=== PATIENT | male | born 1975 | race Caucasian/White ===

== ENCOUNTER 2019-11-08 02:14 | Observation (INO) | payer MEDICARE ==
[2019-11-08 07:03] LABS: Glucose,Whole Blood 178 mg/dL (75-99)
[2019-11-08] MEDS: HEPARIN SODIUM,PORCINE 5,000 UNIT/ML 1 ML VIAL SQ SCH ×2 (09:16→21:19)
[2019-11-08] MEDS: FAMOTIDINE 20 MG/2 ML VIAL IV SCH ×2 (09:16→21:18)
[2019-11-08] MEDS: AMPICILLIN-SULBACTAM 3 GM in SODIUM CHLORIDE 0.9% 100 ML IVPB SCH ×2 (09:16→16:27)
[2019-11-08] MEDS: SODIUM CHLORIDE 0.9% 1,000 ML IV SCH ×2 (09:16→21:19)
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
[2019-11-08] MEDS ORDERED: HEPARIN SODIUM,PORCINE 5,000 UNIT/ML 1 ML VIAL SQ SCH (09:45)
[2019-11-08 10:25] LABS: Basophils % (A) 0 %; Eosinophils # (A) 0.1 k/uL (0-0.7); Eosinophils % (A) 1 %; HCT 35.4 % (39.0-53.0); HGB 11.8 gm/dL (13.0-17.5); Lymphocytes # (A) 0.4 k/uL (1.0-4.8); Lymphocytes % (A) 3 %; MCH 29.4 pg (25.0-35.0); MCHC 33.2 g/dL (31.0-37.0); MCV 88.7 fL (80.0-100.0); Mean Platelet Volume 6.8; Monocytes # (A) 0.3 k/uL (0-1.0); Monocytes % (A) 2 %; Neutrophils # (A) 12.9 k/uL (1.3-7.7); Neutrophils % (A) 94 %; Platelet Count 216 k/uL (150-450); RBC 3.99 m/uL (4.30-5.90); RDW 13.7 % (11.5-15.5); WBC 13.8 k/uL (3.8-10.6)
[2019-11-08 10:30] LABS: ALT 25 U/L (4-49); AST 22 U/L (17-59); African American GFR (CKD) >90 (>60 ml/min/1.73 sqM); Albumin 3.6 g/dL (3.5-5.0); Alkaline Phosphatase 56 U/L (38-126); Anion Gap 5 mmol/L; Bilirubin, Delta 0.1 mg/dL (0.0-0.2); Bilirubin,Unconjugated 0.5 mg/dL (0.0-1.1); Blood Urea Nitrogen 22 mg/dL (9-20); Calcium 8.6 mg/dL (8.4-10.2); Carbon Dioxide 33 mmol/L (22-30); Chloride 98 mmol/L (98-107); Glucose 191 mg/dL (74-99); Magnesium 1.7 mg/dL (1.6-2.3); Non-African American GFR(CKD) >90 (>60 ml/min/1.73 sqM); Potassium 3.9 mmol/L (3.5-5.1); Sodium 136 mmol/L (137-145); Total Bilirubin 0.6 mg/dL (0.2-1.3); Total Protein 6.1 g/dL (6.3-8.2)
[2019-11-08 10:32] LABS: Partial Thromboplastin Time 24.1 sec (22.0-30.0)
--- NOTE | 2019-11-08 10:45 | US ---
EXAMINATION TYPE: US venous doppler duplex LE LT DATE OF EXAM: 11/08/2019 10:29 AM COMPARISON: NONE CLINICAL HISTORY: edema . 367lb pt with red left leg and cellulitis, no h/o dvt SIDE PERFORMED: Left TECHNIQUE: The lower extremity deep venous system is examined utilizing real time linear array sonog rk with graded compression, doppler sonography and color-flow sonography. VESSELS IMAGED: External Iliac Vein (EIV) Common Femoral Vein Deep Femoral Vein Greater Saphenous Vein * Femoral Vein Popliteal Vein Small Saphenous Vein * Proximal Calf Veins (* superficial vessels) Left Leg: Negative for DVT IMPRESSION: No evidence for DVT at this time.
[2019-11-08] MEDS: amLODIPine 10 MG TAB PO SCH (11:10)
[2019-11-08 11:47] LABS: Glucose,Whole Blood 193 mg/dL (75-99)
[2019-11-08] MEDS: INSULIN ASPART (NovoLOG) 100 UNIT/ML VIAL SQ SCH ×3 (12:14→21:19)
[2019-11-08] MEDS: FUROSEMIDE 80 MG TAB PO SCH (16:27)
[2019-11-08 16:51] LABS: Glucose,Whole Blood 204 mg/dL (75-99)
[2019-11-08] MEDS: metFORMIN 500 MG TAB PO SCH (17:30)
[2019-11-08 20:03] LABS: Glucose,Whole Blood 209 mg/dL (75-99)
[2019-11-08] MEDS ORDERED: FAMOTIDINE 20 MG/2 ML VIAL IV SCH (21:00)
[2019-11-08] MEDS: GABAPENTIN 400 MG CAP PO SCH (21:19)
[2019-11-08] MEDS: INSULIN DETEMIR (LEVEMIR) 100 UNIT/ML SYR SQ SCH (21:19)
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
[2019-11-09] MEDS: AMPICILLIN-SULBACTAM 3 GM in SODIUM CHLORIDE 0.9% 100 ML IVPB SCH ×3 (00:03→16:18)
[2019-11-09] MEDS: LEVOTHYROXINE 88 MCG TAB PO SCH (05:39)
[2019-11-09 06:56] LABS: Glucose,Whole Blood 173 mg/dL (75-99)
[2019-11-09 07:37] LABS: Basophils % (A) 0 %; Eosinophils % (A) 1 %; HCT 35.9 % (39.0-53.0); HGB 11.9 gm/dL (13.0-17.5); Lymphocytes # (A) 0.9 k/uL (1.0-4.8); Lymphocytes % (A) 13 %; MCH 29.8 pg (25.0-35.0); MCHC 33.2 g/dL (31.0-37.0); MCV 89.9 fL (80.0-100.0); Mean Platelet Volume 7.1; Monocytes # (A) 0.3 k/uL (0-1.0); Monocytes % (A) 4 %; Neutrophils # (A) 5.6 k/uL (1.3-7.7); Neutrophils % (A) 81 %; Platelet Count 194 k/uL (150-450); RBC 3.99 m/uL (4.30-5.90); RDW 13.6 % (11.5-15.5)
[2019-11-09 07:51] LABS: ALT 27 U/L (4-49); AST 26 U/L (17-59); African American GFR (CKD) >90 (>60 ml/min/1.73 sqM); Albumin 3.4 g/dL (3.5-5.0); Alkaline Phosphatase 53 U/L (38-126); Anion Gap 5 mmol/L; Bilirubin, Delta 0.2 mg/dL (0.0-0.2); Bilirubin,Unconjugated 0.5 mg/dL (0.0-1.1); Blood Urea Nitrogen 14 mg/dL (9-20); Calcium 8.6 mg/dL (8.4-10.2); Carbon Dioxide 33 mmol/L (22-30); Chloride 98 mmol/L (98-107); Glucose 168 mg/dL (74-99); Non-African American GFR(CKD) >90 (>60 ml/min/1.73 sqM); Potassium 3.8 mmol/L (3.5-5.1); Sodium 136 mmol/L (137-145); Total Bilirubin 0.7 mg/dL (0.2-1.3); Total Protein 6.1 g/dL (6.3-8.2)
[2019-11-09] MEDS: INSULIN ASPART (NovoLOG) 100 UNIT/ML VIAL SQ SCH ×4 (08:02→20:50)
[2019-11-09] MEDS: metFORMIN 500 MG TAB PO SCH ×2 (08:03→17:34)
[2019-11-09] MEDS: FLUoxetine HCL 20 MG CAP PO SCH (09:35)
[2019-11-09] MEDS: FUROSEMIDE 80 MG TAB PO SCH ×2 (09:36→15:28)
[2019-11-09] MEDS: ATORVASTATIN 20 MG TAB PO SCH (09:36)
[2019-11-09] MEDS: GABAPENTIN 400 MG CAP PO SCH ×2 (09:36→20:50)
[2019-11-09] MEDS: amLODIPine 10 MG TAB PO SCH (09:36)
[2019-11-09] MEDS: ISOSORBIDE MONONITRATE ER 30 MG TAB.ER.24H PO SCH (09:36)
[2019-11-09] MEDS: HEPARIN SODIUM,PORCINE 5,000 UNIT/ML 1 ML VIAL SQ SCH ×2 (09:37→20:50)
[2019-11-09] MEDS: FAMOTIDINE 20 MG/2 ML VIAL IV SCH (10:30)
[2019-11-09] MEDS: SODIUM CHLORIDE 0.9% 1,000 ML IV SCH (10:33)
[2019-11-09 11:22] LABS: Glucose,Whole Blood 251 mg/dL (75-99)
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
[2019-11-09 16:52] LABS: Glucose,Whole Blood 197 mg/dL (75-99)
[2019-11-09 20:40] LABS: Glucose,Whole Blood 179 mg/dL (75-99)
[2019-11-09] MEDS: FAMOTIDINE 20 MG TAB PO SCH (20:50)
[2019-11-09] MEDS: INSULIN DETEMIR (LEVEMIR) 100 UNIT/ML SYR SQ SCH (20:50)
[2019-11-09] MEDS: ACETAMINOPHEN TAB 325 MG TAB PO PRN (20:51)
--- NOTE | 2019-11-09 22:07 | PN ---
PROGRESS NOTE DATE OF SERVICE: 11/09/2019 REASON FOR FOLLOWUP: Left lower extremity cellulitis. INTERVAL HISTORY: The patient is currently afebrile. The patient is breathing comfortably. Denies having any chest pain or shortness of breath or cough. No nausea or vomiting. No abdominal pain. Overall swelling and redness of the left leg have decreased. PHYSICAL EXAMINATION: Blood pressure 165/76, pulse of 80, temperature 98.4. General description is a middle-aged male up in the chair in no distress. RESPIRATORY SYSTEM: Unlabored breathing. Clear to auscultation anteriorly. HEART: S1, S2. Regular rate and rhythm. ABDOMEN: Soft. No tenderness. LABS: Hemoglobin 11.9, white count 7.0, BUN of 14, creatinine 0.64. DIAGNOSTIC IMPRESSION AND PLAN: Patient with acute left lower extremity cellulitis with diffuse cellulitis, likely streptococcal disease. The patient clinically responded to the Unasyn; to continue and finish therapy with oral antibiotics. Hopefully can switch over tomorrow and continue with supportive care. MMODL / IJN: [id number] /
[2019-11-10] MEDS: AMPICILLIN-SULBACTAM 3 GM in SODIUM CHLORIDE 0.9% 100 ML IVPB SCH ×2 (00:15→08:49)
[2019-11-10] MEDS: SODIUM CHLORIDE 0.9% 1,000 ML IV SCH ×2 (00:17→12:58)
[2019-11-10 01:47] VITALS: TEMP 98.2
[2019-11-10] MEDS: LEVOTHYROXINE 88 MCG TAB PO SCH (06:06)
[2019-11-10 06:50] LABS: Glucose,Whole Blood 194 mg/dL (75-99)
[2019-11-10 07:43] VITALS: BP 108/74; PULSE 75; RESP 16
[2019-11-10] MEDS: ACETAMINOPHEN TAB 325 MG TAB PO PRN (07:45)
[2019-11-10] MEDS: INSULIN ASPART (NovoLOG) 100 UNIT/ML VIAL SQ SCH ×2 (07:46→11:50)
[2019-11-10] MEDS: metFORMIN 500 MG TAB PO SCH (08:49)
[2019-11-10 09:03] LABS: Basophils % (A) 1 %; Eosinophils # (A) 0.1 k/uL (0-0.7); Eosinophils % (A) 2 %; HCT 36.3 % (39.0-53.0); Lymphocytes % (A) 16 %; MCH 30.1 pg (25.0-35.0); MCHC 33.1 g/dL (31.0-37.0); MCV 90.9 fL (80.0-100.0); Mean Platelet Volume 7.1; Monocytes # (A) 0.2 k/uL (0-1.0); Monocytes % (A) 4 %; Neutrophils # (A) 4.6 k/uL (1.3-7.7); Neutrophils % (A) 75 %; Platelet Count 226 k/uL (150-450); RBC 3.99 m/uL (4.30-5.90); RDW 13.6 % (11.5-15.5); WBC 6.2 k/uL (3.8-10.6)
[2019-11-10] MEDS: FAMOTIDINE 20 MG TAB PO SCH (09:15)
[2019-11-10] MEDS: ATORVASTATIN 20 MG TAB PO SCH (09:15)
[2019-11-10] MEDS: ISOSORBIDE MONONITRATE ER 30 MG TAB.ER.24H PO SCH (09:15)
[2019-11-10] MEDS: GABAPENTIN 400 MG CAP PO SCH (09:16)
[2019-11-10] MEDS: amLODIPine 10 MG TAB PO SCH (09:16)
[2019-11-10] MEDS: FLUoxetine HCL 20 MG CAP PO SCH (09:16)
[2019-11-10] MEDS: HEPARIN SODIUM,PORCINE 5,000 UNIT/ML 1 ML VIAL SQ SCH (09:16)
[2019-11-10] MEDS: FUROSEMIDE 80 MG TAB PO SCH (09:19)
[2019-11-10 09:21] LABS: African American GFR (CKD) >90 (>60 ml/min/1.73 sqM); Anion Gap 7 mmol/L; Blood Urea Nitrogen 15 mg/dL (9-20); Calcium 8.6 mg/dL (8.4-10.2); Carbon Dioxide 32 mmol/L (22-30); Chloride 98 mmol/L (98-107); Glucose 233 mg/dL (74-99); Non-African American GFR(CKD) >90 (>60 ml/min/1.73 sqM); Potassium 3.7 mmol/L (3.5-5.1); Sodium 137 mmol/L (137-145)
[2019-11-10 11:40] LABS: Glucose,Whole Blood 211 mg/dL (75-99)
[2019-11-10] MEDS ORDERED: AMPICILLIN-SULBACTAM 3 GM in SODIUM CHLORIDE 0.9% 100 ML IVPB SCH (12:00)
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
--- NOTE | 2019-11-10 12:57 | PN ---
PROGRESS NOTE DATE OF SERVICE: 11/10/2019 REASON FOR FOLLOWUP: Right lower extremity cellulitis. INTERVAL HISTORY: Patient is currently afebrile, has been breathing comfortably. The patient denies having any chest pain or shortness of breath, no cough, no nausea, no abdominal pain. Overall swelling and redness have decreased. PHYSICAL EXAMINATION: Blood pressure 130/74 with a pulse of 74, temperature 98.2, he is 98% on 2 L nasal cannula. General description is a middle-aged male, lying in bed in no distress. RESPIRATORY SYSTEM: Unlabored breathing, clear to auscultation anteriorly. HEART: S1, S2. Regular rate and rhythm. Left leg swelling and redness have decreased. LABS: Hemoglobin is 12, white count of 6.2, BUN of 15, creatinine 0.62. DIAGNOSTIC IMPRESSION AND PLAN: Patient with acute left lower extremity cellulitis, diffuse swelling and redness overall clinical improvement on Unasyn to finish therapy with oral Keflex 500 mg p.o. q.6 hours for 10 days along with Silviano wrap to the leg to keep the swelling down. 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 Will be ordered stat. MMODL / IJN: [id number] /
--- NOTE | 2019-11-12 08:35 | CDI ---
Documentation Clarification Form Date: 11/12/2019 08:09:40 AM From: Linda Mast Phone: To: Linda Mast If you have a question about this query, please contact Becky Mtz Mushroom Picker at [phone] between 8am and 5pm. Admit Date: 11/08/2019 04:30:00 AM Patient Name: Krystian Haddad Visit Number: [id number] Discharge Date: 11/10/2019 02:26:00 PM ATTENTION: The Clinical Documentation Specialists (CDI) and [facility] Coding Staff appreciate your assistance in clarifying documentation. Please respond to the clarification below the line at the bottom and electronically sign. The CDI & [facility] Coding staff will review the response and follow-up if needed. Please note: Queries are made part of the Legal Health Record. If you have any questions, please contact the author of this message via ITS. Dr. Pierre Ayala Your patient has the documented diagnosis of cellulitis left leg and diabetes in your DCS you document Acute left leg cellulitis and diabetic patient. Please clarify if there is a link between the DM and cellulitis. A relationship between diagnoses cannot be assumed unless documented as such by the attending physician. In order to capture the severity of condition; please document the relationship, if any, between these diagnoses. History/Risk Factors: DM, morbid obesity BMI 55.8 Clinical Indicators: Treatment: Monitor blood sugars, Unasyn, ID consult, culture Please clarify if any relationship (due to, caused by, secondary to) exists between DM and cellulitis. Please include clinical findings supporting your diagnosis. Cellulitis with relationship to diabetes Cellulitis not linked to Diabetes Other explanation of clinical findings (please specify) Unable to determine (no explanation for clinical findings) Cellulitis with relationship to diabetes MTDD
== END 2019-11-10 14:26 | disposition home or self-care (01) ==
LOC: 4SSUR 04:30 → INTOOBSV 04:30 → UNDODISIN 11-10 14:26 → UNDODISOB 11-10 14:26
PROVIDERS: ADMIT Internal Medicine; ATTEND Internal Medicine
DX: E11.628 Type 2 diabetes mellitus with other skin complications (principal); L03.116 Cellulitis of left lower limb; S80.822A Blister (nonthermal), left lower leg, initial encounter; S81.801A Unspecified open wound, right lower leg, initial encounter; E11.65 Type 2 diabetes mellitus with hyperglycemia; I10 Essential (primary) hypertension; M19.90 Unspecified osteoarthritis, unspecified site; G47.33 Obstructive sleep apnea (adult) (pediatric); E03.9 Hypothyroidism, unspecified; J96.11 Chronic respiratory failure with hypoxia; M21.371 Foot drop, right foot; F41.9 Anxiety disorder, unspecified; F32.9 Major depressive disorder, single episode, unspecified; E66.2 Morbid (severe) obesity with alveolar hypoventilation; F17.210 Nicotine dependence, cigarettes, uncomplicated; J44.9 Chronic obstructive pulmonary disease, unspecified; F45.8 Other somatoform disorders; K76.0 Fatty (change of) liver, not elsewhere classified; Z20.828 Contact with and (suspected) exposure to other viral communicable diseases; Z97.8 Presence of other specified devices; Z79.4 Long term (current) use of insulin; Z99.89 Dependence on other enabling machines and devices; Z68.43 Body mass index [BMI] 50.0-59.9, adult; Z87.01 Personal history of pneumonia (recurrent); Z86.718 Personal history of other venous thrombosis and embolism; Z87.81 Personal history of (healed) traumatic fracture; Z87.820 Personal history of traumatic brain injury; Z87.11 Personal history of peptic ulcer disease; Z87.19 Personal history of other diseases of the digestive system; Z98.890 Other specified postprocedural states; Z89.022 Acquired absence of left finger(s); Z91.89 Other specified personal risk factors, not elsewhere classified; Z79.899 Other long term (current) drug therapy; Z79.1 Long term (current) use of non-steroidal anti-inflammatories (NSAID); Z79.890 Hormone replacement therapy; Z82.5 Family history of asthma and other chronic lower respiratory diseases; Z82.49 Family history of ischemic heart disease and other diseases of the circulatory system; Z81.2 Family history of tobacco abuse and dependence; Z81.1 Family history of alcohol abuse and dependence; Z80.49 Family history of malignant neoplasm of other genital organs; Z83.3 Family history of diabetes mellitus; Z81.8 Family history of other mental and behavioral disorders; X58.XXXA Exposure to other specified factors, initial encounter
CPT/HCPCS: 96376 ×2; 96361 ×2; 96365; 96366 ×3; 96372 ×3; 96375; 80048 ×3; 80076 ×2; 83735; 85025 ×3; 85610; 85730; 87040; 87070; 87205; 87075; 87077; 87186; 84145; 87635; 93971; G0379; G0378 ×3; J1644 ×3; J0295 ×3

== ENCOUNTER 2020-04-06 02:16 | Inpatient (IN) | payer MEDICARE ==
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
[2020-04-06] MEDS ORDERED: VANCOMYCIN IV PER PHARMACY 1 EACH MISC MISCELLANE PRN (03:28)
[2020-04-06] MEDS ORDERED: VANCOMYCIN 2,250 MG in SODIUM CHLORIDE 0.9% 500 ML 500 ML IVPB STA (03:34)
[2020-04-06] MEDS ORDERED: ACETAMINOPHEN TAB 325 MG TAB PO PRN (03:34)
[2020-04-06] MEDS ORDERED: ONDANSETRON 4 MG/2 ML VIAL IVP PRN (03:34)
[2020-04-06] MEDS: SODIUM CHLORIDE 0.9% 1,000 ML IV SCH ×3 (04:21→21:35)
[2020-04-06 06:01] LABS: African American GFR (CKD) >90 (>60 ml/min/1.73 sqM); Anion Gap 5 mmol/L; Blood Urea Nitrogen 24 mg/dL (9-20); Calcium 8.9 mg/dL (8.4-10.2); Carbon Dioxide 33 mmol/L (22-30); Chloride 98 mmol/L (98-107); Glucose 172 mg/dL (74-99); Non-African American GFR(CKD) 88 (>60 ml/min/1.73 sqM); Potassium 3.6 mmol/L (3.5-5.1); Sodium 136 mmol/L (137-145)
[2020-04-06 07:29] LABS: Glucose,Whole Blood 151 mg/dL (75-99)
[2020-04-06] MEDS ORDERED: NAPROXEN 250 MG TAB PO PRN (10:48)
[2020-04-06] MEDS ORDERED: BUTALB/APAP/CAFF 50-325-40MG TAB PO PRN (10:48)
[2020-04-06] MEDS ORDERED: IBUPROFEN 800 MG TAB PO PRN (10:48)
[2020-04-06 12:05] LABS: Glucose,Whole Blood 199 mg/dL (75-99)
[2020-04-06] MEDS: INSULIN ASPART (NovoLOG) 100 UNIT/ML VIAL SQ SCH ×3 (13:00→21:28)
[2020-04-06] MEDS: FLUoxetine HCL 20 MG CAP PO SCH (13:01)
[2020-04-06] MEDS ORDERED: VANCOMYCIN 2,250 MG in SODIUM CHLORIDE 0.9% 500 ML 500 ML IVPB SCH (16:00)
[2020-04-06 16:58] LABS: Glucose,Whole Blood 238 mg/dL (75-99)
[2020-04-06] MEDS: PANTOPRAZOLE 40 MG TABLET PO SCH (17:04)
[2020-04-06] MEDS: metFORMIN 500 MG TAB PO SCH (17:04)
[2020-04-06] MEDS: FUROSEMIDE 80 MG TAB PO SCH (17:04)
[2020-04-06 20:49] LABS: Glucose,Whole Blood 134 mg/dL (75-99)
[2020-04-06] MEDS: INSULIN DETEMIR (LEVEMIR) 100 UNIT/ML SYR SQ SCH (21:29)
[2020-04-06] MEDS: GABAPENTIN 400 MG CAP PO SCH (21:29)
[2020-04-06] MEDS: MORPHINE SULFATE 4 MG/ML SYRINGE IVP PRN (23:09)
--- NOTE | 2020-04-06 23:11 | CONS ---
CONSULTATION DATE OF VISIT: 04/06/2020 REASON FOR CONSULTATION: Left lower extremity cellulitis. HISTORY OF PRESENT ILLNESS: The patient is a 45-year-old male who presented to the ER early this morning for evaluation of left leg pain, swelling and redness. Apparently the patient did have a small laceration on the left lower leg that he sustained a few days ago and has been treated locally. The patient noticed yesterday his left leg becoming more swollen, red and painful. The patient describes the pain to the leg to more of a throbbing, dull aching, intensity 6 to 7 out of 10 and no radiation. The patient did have diffuse swelling and redness. Did not have any drainage. Did have some chills. With these symptoms the patient presented to the hospital. On arrival at the ER the patient was afebrile. Subsequently he spiked a fever of 100.8 this afternoon. The patient did not have a CBC done. His kidney function was normal. Dietrich PCR was negative. The patient was started on vancomycin and Rocephin and admitted to the hospital. Infectious Disease was consulted for further management of antibiotic therapy. REVIEW OF SYSTEMS: Positive points have been mentioned in the HPI. Rest of the systems are negative. PAST MEDICAL HISTORY: COPD, diabetes mellitus, hypertension, osteoarthritis, pneumonia, sleep apnea, hypothyroidism. PAST SURGICAL HISTORY: Left hand surgery, ORIF right hip, inguinal hernia repair. SOCIAL HISTORY: Currently a smoker. Occasionally drinks. marijuana use. FAMILY HISTORY: Father with history of CAD, hypertension, [place]. Mother with history of hypertension, [place] and right lung cancer. ALLERGIES: NO KNOWN DRUG ALLERGIES. CURRENT MEDICATIONS: Tylenol, , Norvasc, Lipitor, Rocephin, vancomycin, Lofibra, Prozac, Lasix. PHYSICAL EXAMINATION: Blood pressure is 132/63 with a pulse of 104, temperature 100.8. He is 95% on room air. General description is a middle-aged male lying in bed in no distress. No tachypnea or accessory muscle of respiration use. HEENT: Examination shows no pallor or scleral icterus. Oral mucous membrane is dry. NECK: Trachea is central. No thyromegaly. LUNGS: Unlabored breathing. Decreased breath sounds at bases. No wheeze or crackle. HEART: S1, S2. Regular rate and rhythm. ABDOMEN: Soft. No tenderness. No guarding or rigidity. EXTREMITIES: Left leg did have diffuse swelling and redness, superficial on the anterior leg but no slough tissue. No surrounding redness. No surrounding induration or any drainage. Neurologically the patient is awake, alert, oriented x3. Mood and affect normal. LABS: His kidney function and electrolytes have been normal. No CBC done in the ER. DIAGNOSTIC IMPRESSION AND PLAN: Patient admitted to hospital with acute left lower extremity cellulitis in this patient who did have diffuse swelling and redness, likely streptococcal disease, clinically doubt MRSA or Gram-negative infection. PLAN: 1. Discontinue vancomycin and Rocephin. 2. Start the patient on cefazolin 2 grams q.8 hours. 3. Will follow clinical condition and culture to further adjust medication if needed. Thank you for this consultation. Will follow this patient along with you. LESLEY / AUGUSTN: [id number] /
[2020-04-07] MEDS: SODIUM CHLORIDE 0.9% 1,000 ML IV SCH ×3 (04:57→16:40)
[2020-04-07] MEDS: LEVOTHYROXINE 100 MCG TAB PO SCH (04:57)
[2020-04-07] MEDS: LEVOTHYROXINE 75 MCG TAB PO SCH (04:57)
[2020-04-07 07:58] LABS: Glucose,Whole Blood 213 mg/dL (75-99)
[2020-04-07] MEDS: INSULIN ASPART (NovoLOG) 100 UNIT/ML VIAL SQ SCH ×4 (08:10→20:26)
[2020-04-07] MEDS: metFORMIN 500 MG TAB PO SCH ×2 (08:11→16:39)
[2020-04-07] MEDS: CHOLECALCIFEROL 1,000 UNIT TAB PO SCH (08:11)
[2020-04-07] MEDS: amLODIPine 10 MG TAB PO SCH (08:11)
[2020-04-07] MEDS: FUROSEMIDE 80 MG TAB PO SCH ×2 (08:11→16:40)
[2020-04-07] MEDS: FENOFIBRATE 160 MG TAB PO SCH (08:11)
[2020-04-07] MEDS: PANTOPRAZOLE 40 MG TABLET PO SCH ×2 (08:11→16:39)
[2020-04-07] MEDS: ATORVASTATIN 20 MG TAB PO SCH (08:11)
[2020-04-07] MEDS: GABAPENTIN 400 MG CAP PO SCH ×2 (08:11→20:26)
[2020-04-07] MEDS ORDERED: FLUoxetine HCL 20 MG CAP PO SCH (09:00)
[2020-04-07 09:37] LABS: African American GFR (CKD) 123.3 (60.0-200.0); Non-African American GFR(CKD) 106.4 (60.0-200.0)
[2020-04-07] MEDS: ISOSORBIDE MONONITRATE ER 30 MG TAB.ER.24H PO SCH (09:49)
[2020-04-07 12:21] LABS: Glucose,Whole Blood 163 mg/dL (75-99)
[2020-04-07 16:28] LABS: Glucose,Whole Blood 185 mg/dL (75-99)
[2020-04-07] MEDS: ENOXAPARIN 40 MG/0.4 ML SYRINGE SQ SCH (16:39)
--- NOTE | 2020-04-07 17:21 | PN ---
PROGRESS NOTE DATE OF SERVICE: 04/07/2020 REASON FOR FOLLOWUP: Left lower extremity cellulitis. INTERVAL HISTORY: Patient is currently afebrile. Patient is breathing comfortably. The patient denies having any chest pain. No shortness of breath. No cough. No abdominal pain. Overall pain and discomfort to the left leg has decreased. PHYSICAL EXAMINATION: Blood pressure 135/79, pulse of 95, temperature 98.9. He is 96% on room air, General description: The patient is a middle-aged male up in the chair in no distress. Respiratory system: Unlabored breathing. Clear to auscultation anteriorly. HEART: S1, S2. Regular rate and rhythm. Abdomen: Soft, no tenderness. Left leg swelling persists. Redness is slightly decreased. LABS: Creatinine 0.8. Blood culture has been negative. DIAGNOSTIC IMPRESSION AND PLAN: Patient with acute left lower extremity cellulitis in this patient who did have diffuse swelling and redness, likely streptococcal disease. To continue cefazolin 2 gm q8 for another 24 hours and we will reevaluate the patient tomorrow. Continue supportive care. MMODL / IJN: [id number] /
[2020-04-07 20:10] LABS: Glucose,Whole Blood 176 mg/dL (75-99)
[2020-04-07] MEDS: INSULIN DETEMIR (LEVEMIR) 100 UNIT/ML SYR SQ SCH (20:25)
[2020-04-07] MEDS: MORPHINE SULFATE 4 MG/ML SYRINGE IVP PRN (23:27)
[2020-04-08] MEDS: SODIUM CHLORIDE 0.9% 1,000 ML IV SCH ×2 (05:17→14:45)
[2020-04-08] MEDS: LEVOTHYROXINE 75 MCG TAB PO SCH (05:24)
[2020-04-08] MEDS: LEVOTHYROXINE 100 MCG TAB PO SCH (05:24)
[2020-04-08 07:14] LABS: Glucose,Whole Blood 137 mg/dL (75-99)
[2020-04-08 07:37] LABS: Glucose,Whole Blood 139 mg/dL (75-99)
[2020-04-08] MEDS: ENOXAPARIN 40 MG/0.4 ML SYRINGE SQ SCH (08:30)
[2020-04-08] MEDS: metFORMIN 500 MG TAB PO SCH ×2 (08:30→17:05)
[2020-04-08] MEDS: CHOLECALCIFEROL 1,000 UNIT TAB PO SCH (08:30)
[2020-04-08] MEDS: PANTOPRAZOLE 40 MG TABLET PO SCH ×2 (08:30→17:05)
[2020-04-08] MEDS: GABAPENTIN 400 MG CAP PO SCH (08:30)
[2020-04-08] MEDS: ATORVASTATIN 20 MG TAB PO SCH (08:30)
[2020-04-08] MEDS: INSULIN ASPART (NovoLOG) 100 UNIT/ML VIAL SQ SCH ×3 (08:30→17:10)
[2020-04-08] MEDS: FENOFIBRATE 160 MG TAB PO SCH (08:30)
[2020-04-08] MEDS: amLODIPine 10 MG TAB PO SCH (08:30)
[2020-04-08] MEDS: FUROSEMIDE 80 MG TAB PO SCH ×2 (08:31→17:05)
[2020-04-08] MEDS: ISOSORBIDE MONONITRATE ER 30 MG TAB.ER.24H PO SCH (08:37)
--- NOTE | 2020-04-08 09:05 | US ---
EXAMINATION TYPE: US venous doppler duplex LE BI DATE OF EXAM: 04/08/2020 8:15 AM COMPARISON: US left lower extremity November 08, 2019 CLINICAL HISTORY: dvt. Left lower leg swelling with cellulitis, occurring intermittently over several months per patient. Bilateral pain. SIDE PERFORMED: Bilateral TECHNIQUE: The lower extremity deep venous system is examined utilizing real time linear array sonog rk with graded compression, doppler sonography and color-flow sonography. VESSELS IMAGED: Common Femoral Vein Deep Femoral Vein Greater Saphenous Vein * Femoral Vein Popliteal Vein Small Saphenous Vein * Proximal Calf Veins (* superficial vessels) Right Leg: Negative for DVT Left Leg: Negative for DVT. Couple of left groin lymph nodes are seen with larger = 3.6 x 1.6 x 1.0c m. Grayscale, color doppler, spectral doppler imaging performed of the deep veins of the bilateral lower extremities. There is normal flow, compressibility, vascular waveforms. IMPRESSION: No ultrasound evidence for acute DVT in either lower extremity. Technologist raman some prominent lymph nodes in the left groin region in middle of study.
[2020-04-08 09:32] LABS: African American GFR (CKD) 130.2 (60.0-200.0); Non-African American GFR(CKD) 112.4 (60.0-200.0)
[2020-04-08 11:38] LABS: Glucose,Whole Blood 193 mg/dL (75-99)
[2020-04-08] MEDS: FLUoxetine HCL 20 MG CAP PO SCH (12:01)
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
--- NOTE | 2020-04-08 15:05 | P.PN ---
Subjective Progress Note Date: 04/07/20 Principal diagnosis: Bilateral cellulitis of the lower extremity more so on the left side compared right side Sepsis Elevated lactic acid Dyslipidemia Hypertension hypertensive cardiovascular disease Mood disorder Depression Type 2 diabetes mellitus Hypothyroidism Morbid obesity Chronic cellulitis of the lower extremity 04/07/2019, patient seen eval examined labs reviewed medications reviewed care plan discussed, cellulitis and right hematoma is improving ultrasound of the legs has been done and results are reviewed, patient likely would be discharge in next 24 hours as he is feeling better pleasant 45-year-old male with the morbid obesity came into the hospital with increased swelling of the lower extremity with history of chronic cellulitis worsening also have ongoing fever and lactic acidosis patient has been admitted to hospital with IV cefazolin Objective - Vital Signs Vital signs: Vital Signs Temp 98.9 F 04/07/20 14:00 Pulse 75 04/07/20 14:00 Resp 18 04/07/20 14:00 BP 135/79 04/07/20 14:00 Pulse Ox 96 04/07/20 14:00 Intake & Output 04/06/20 04/07/20 04/07/20 18:59 06:59 18:59 Intake Total 1310 500 Balance 1310 500 Intake: Intake, IV Titration 830 Amount Sodium Chloride 0.9% 1, 780 000 ml @ 130 mls/hr IV . Q7H42M [facility] Rx#:[id number] ceFAZolin 2 gm In Sodium 50 Chloride 0.9% 50 ml @ 100 mls/hr IVPB Q8HR ANUM Rx# :[id number] Oral 480 500 Other: Voiding Method Toilet Toilet Toilet Urinal Urinal Urinal # Voids 3 4 4 # Bowel Movements 1 1 - Exam - Constitutional General appearance: morbidly obese - EENT Eyes: PERRLA ENT: normal oropharynx Ears: bilateral: normal - Neck Carotids: bilateral: upstroke normal Thyroid: bilateral: normal size - Respiratory Respiratory: bilateral: CTA - Cardiovascular Rhythm: regular Heart sounds: normal: S1, S2 - Gastrointestinal General gastrointestinal: distended, normal bowel sounds, soft - Integumentary bi lateral lower extremity more so on the left side compared right Integumentary: cellulitis - Neurologic Neurologic: CNII-XII intact - Musculoskeletal Musculoskeletal: gait normal, generalized weakness, strength equal bilaterally - Psychiatric Psychiatric: A&O x's 3, appropriate affect, intact judgment & insight - Labs CBC & Chem 7: 04/08/20 05:42 Labs: Abnormal Lab Results - Last 24 Hours (Table) 04/06/20 04/06/20 04/07/20 Range/Units 16:44 20:46 07:46 POC Glucose (mg/dL) 238 H 134 H 213 H (75-99) mg/dL 04/07/20 Range/Units 12:12 POC Glucose (mg/dL) 163 H (75-99) mg/dL Microbiology - Last 24 Hours (Table) 04/06/20 03:45 Blood Culture - Preliminary Blood No Growth after 24 hours 04/06/20 03:45 Blood Culture - Preliminary Blood No Growth after 24 hours Assessment and Plan Assessment: Bilateral cellulitis of the lower extremity more so on the left side compared ri ght side Sepsis Elevated lactic acid Dyslipidemia Hypertension hypertensive cardiovascular disease Mood disorder Depression Type 2 diabetes mellitus Hypothyroidism Morbid obesity Chronic cellulitis of the lower extremity Plan: Patient is admitted into the hospital for broad-spectrum antibiotics gentle hydration ID consultation Time with Patient: Greater than 30
--- NOTE | 2020-04-08 15:10 | P.DS ---
Providers Date of admission: 04/06/20 03:28 Expected date of discharge: 04/08/20 Attending physician: Bird Holloway Consults: 04/06/20 06:23 Consult Physician Routine Consulting Provider: Annalisa Nunez Consult Reason/Comments: feverq Do you want consulting provider notified?: Yes Primary care physician: [facility] Course: 04/08/2019, patient seen eval examined during the rounds labs reviewed medications reviewed, patient wishes to go home, will discharge him on oral Keflex continue home medications 04/07/2019, patient seen eval examined labs reviewed medications reviewed care plan discussed, cellulitis and right hematoma is improving ultrasound of the legs has been done and results are reviewed, patient likely would be discharge in next 24 hours as he is feeling better pleasant 45-year-old male with the morbid obesity came into the hospital with increased swelling of the lower extremity with history of chronic cellulitis worsening also have ongoing fever and lactic acidosis patient has been admitted to hospital with IV cefazolin Assessment: Bilateral cellulitis of the lower extremity more so on the left side compared right side Sepsis Elevated lactic acid Dyslipidemia Hypertension hypertensive cardiovascular disease Mood disorder Depression Type 2 diabetes mellitus Hypothyroidism Morbid obesity Chronic cellulitis of the lower extremity Patient Condition at Discharge: Good Plan - Discharge Summary Discharge Rx Participant: No New Discharge Prescriptions: New Cephalexin [Keflex] 500 mg PO Q8HR 1 Days #30 cap Continue amLODIPine [Norvasc] 10 mg PO DAILY Isosorbide Mononitrate ER [Imdur] 30 mg PO DAILY Fenofibrate Nanocrystallized [Fenofibrate] 145 mg PO DAILY Insulin Glargine [Lantus] 45 unit SQ HS Sildenafil Citrate [Viagra] 100 mg PO DAILY PRN PRN Reason: E.D. Omeprazole 20 mg PO BID Naproxen [Naprosyn] 500 mg PO Q12HR PRN PRN Reason: Pain Ibuprofen [Motrin] 800 mg PO TID PRN PRN Reason: Pain metFORMIN HCL [Glucophage] 1,000 mg PO BID-W/MEALS Levothyroxine Sodium [Synthroid] 175 mcg PO DAILY Gabapentin [Neurontin] 400 mg PO BID FLUoxetine HCL 40 mg PO Q48H Acetaminophen [Tylenol Arthritis] 650 mg PO DAILY PRN PRN Reason: ARTHRITIS PAIN Furosemide [Lasix] 80 mg PO BID Atorvastatin Calcium [Lipitor] 20 mg PO DAILY Cholecalciferol [Vitamin D3 (25 Mcg = 1000 Iu)] 1,000 unit PO DAILY FLUoxetine HCL [PROzac] 20 mg PO Q48H Butalb/Acetaminophen/Caffeine [Fioricet 50-300-40 mg Capsule] 1 cap PO BID PRN PRN Reason: Migraine Headache Discharge Medication List amLODIPine [Norvasc] 10 mg PO DAILY 10/14/14 [History] Isosorbide Mononitrate ER [Imdur] 30 mg PO DAILY 11/16/14 [History] Fenofibrate Nanocrystallized [Fenofibrate] 145 mg PO DAILY 08/08/15 [History] Acetaminophen [Tylenol Arthritis] 650 mg PO DAILY PRN 11/08/19 [History] Atorvastatin Calcium [Lipitor] 20 mg PO DAILY 11/08/19 [History] FLUoxetine HCL 40 mg PO Q48H 11/08/19 [History] Furosemide [Lasix] 80 mg PO BID 11/08/19 [History] Gabapentin [Neurontin] 400 mg PO BID 11/08/19 [History] Ibuprofen [Motrin] 800 mg PO TID PRN 11/08/19 [History] Insulin Glargine [Lantus] 45 unit SQ HS 11/08/19 [History] Levothyroxine Sodium [Synthroid] 175 mcg PO DAILY 11/08/19 [History] Naproxen [Naprosyn] 500 mg PO Q12HR PRN 11/08/19 [History] Omeprazole 20 mg PO BID 11/08/19 [History] Sildenafil Citrate [Viagra] 100 mg PO DAILY PRN 11/08/19 [History] metFORMIN HCL [Glucophage] 1,000 mg PO BID-W/MEALS 11/08/19 [History] Butalb/Acetaminophen/Caffeine [Fioricet 50-300-40 mg Capsule] 1 cap PO BID PRN 04/06/20 [History] Cholecalciferol [Vitamin D3 (25 Mcg = 1000 Iu)] 1,000 unit PO DAILY 04/06/20 [History] FLUoxetine HCL [PROzac] 20 mg PO Q48H 04/06/20 [History] Cephalexin [Keflex] 500 mg PO Q8HR 1 Days #30 cap 04/08/20 [Rx] Follow up Appointment(s)/Referral(s): Krystian Burnham MD [Primary Care Provider] - 1-2 days Discharge Disposition: HOME SELF-CARE
[2020-04-08 15:58] VITALS: BP 159/81; PULSE 82; RESP 20; TEMP 98.5
[2020-04-08 17:05] LABS: Glucose,Whole Blood 182 mg/dL (75-99)
== END 2020-04-08 17:51 | disposition home or self-care (01) | DRG 872 ==
LOC: EC 02:16 → 4SSUR 03:28
PROVIDERS: ADMIT Internal Medicine Sleep Medicine; ATTEND Internal Medicine Sleep Medicine
DX: A41.9 Sepsis, unspecified organism (principal); E87.2 Acidosis; L03.116 Cellulitis of left lower limb; L03.115 Cellulitis of right lower limb; Z68.43 Body mass index [BMI] 50.0-59.9, adult; E78.5 Hyperlipidemia, unspecified; E66.01 Morbid (severe) obesity due to excess calories; E11.9 Type 2 diabetes mellitus without complications; E03.9 Hypothyroidism, unspecified; F17.200 Nicotine dependence, unspecified, uncomplicated; F32.9 Major depressive disorder, single episode, unspecified; F41.9 Anxiety disorder, unspecified; Z79.4 Long term (current) use of insulin; I11.9 Hypertensive heart disease without heart failure; Z20.822 Contact with and (suspected) exposure to COVID-19; J44.9 Chronic obstructive pulmonary disease, unspecified; F12.90 Cannabis use, unspecified, uncomplicated; G47.30 Sleep apnea, unspecified; Z82.49 Family history of ischemic heart disease and other diseases of the circulatory system; Z82.5 Family history of asthma and other chronic lower respiratory diseases; Z80.1 Family history of malignant neoplasm of trachea, bronchus and lung; Z79.899 Other long term (current) drug therapy; Z79.890 Hormone replacement therapy; Z83.3 Family history of diabetes mellitus; Z86.718 Personal history of other venous thrombosis and embolism; Z87.01 Personal history of pneumonia (recurrent); Z98.890 Other specified postprocedural states
CPT/HCPCS: 36415; 80048; 80202; 82565; 87040; 87635; 93005; 93970; 96365; 99285

== ENCOUNTER 2022-03-14 06:14 | Day surgery (SDC) | payer MEDICARE ==
[2022-03-12 13:48] VITALS: BMI 49.4
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
[~2022-03-14 06:14] MED LIST: LACTATED RINGERS 1,000 ML IV SCH
[2022-03-14 07:12] VITALS: TEMP 97.2
[2022-03-14 07:14] LABS: Glucose,Whole Blood 141 mg/dL (70-110)
[2022-03-14] MEDS ORDERED: PROPOFOL 10 MG/ML 20 ML VIAL IV ONE (07:31)
[2022-03-14] MEDS ORDERED: LIDOCAINE 2% INJ 20 MG/ML (2 ML VIAL) ONE (07:31)
--- NOTE | 2022-03-14 07:45 | P.PCN ---
Date of Procedure: 03/14/22 Description of Procedure: PREOPERATIVE DIAGNOSIS: Gastroesophageal reflux disease. Morbid obesity. History of GI bleed POSTOPERATIVE DIAGNOSIS: Gastroesophageal reflux disease. Morbid obesity. Gastritis. History of GI bleed OPERATION: Esophagogastroduodenoscopy with biopsies along antrum and duodenum SURGEON: Adela Blanc MD ANESTHESIA: MAC. INDICATIONS: The patient is a 47-year-old female who presents with reflux disease. Benefits and risks of the procedure were described. Informed consent was obtained. DESCRIPTION: The patient was brought into the endoscopy suite and laid in the left lateral decubitus position. An Olympus gastroscope was passed along the posterior oropharynx down to the distal esophagus where the squamocolumnar junction was encountered at 42 cm from the incisors. The stomach was entered and no bile reflux was found. Additional findings are listed below. Biopsies with cold forceps were obtained of the antrum. The first through third portion of the duodenum was examined. Retroflexion of the scope confirmed Hill grade 2 lower esophageal valve. The squamocolumnar junction demonstrated [place] grade B erosive esophagitis. The stomach was desufflated. The patient tolerated the procedure well. FINDINGS: Squamocolumnar junction 42 cm from the incisors. Diaphragmatic hiatus at 42 cm. Hill grade 2 lower esophageal valve. LA grade B erosive esophagitis. Biopsies obtained of duodenal Chronic gastritis RECOMMENDATIONS: Upper endoscopy as needed.
[2022-03-14 08:10] VITALS: RESP 20
--- NOTE | 2022-03-14 08:10 | P.PCN ---
Date of Procedure: 03/14/22 Description of Procedure: PREOPERATIVE DIAGNOSIS: GI bleed POSTOPERATIVE DIAGNOSIS: Tubular adenoma ascending colon Tubular adenoma transverse colon Internal hemorrhoids, grade 2 OPERATION: Colonoscopy to the ileocecal valve and appendiceal orifice, cecum Colonoscopy with hot snare polypectomy SURGEON: Adela Blanc MD. ANESTHESIA: MAC. INDICATIONS: The patient is an 47-year-old male who presents with history of GI bleed. Benefits and risks were described and informed consent was obtained. DESCRIPTION OF PROCEDURE: The patient had undergone MiraLAX. The patient had been brought into the operating room and laid in the left lateral decubitus position. After adequate intravenous sedation, the rectum was examined with 2% lidocaine jelly. The prostate was unremarkable. No external hemorrhoids were encountered. The rectal tone was within normal limits. No lesions were palpated in the rectal vault. An Olympus colonoscope was advanced until the cecum, ileocecal valve and appendiceal orifice were clearly viewed. The prep was good . No sigmoid diverticulosis was encountered. Colonic polyps were found and removed. No evidence of focal colitis was found. Retroflexion of the scope demonstrated grade 2 internal hemorrhoids with inflammation. The colon was desufflated. The patient had tolerated the procedure well. Withdrawal time was over 6 minutes. FINDINGS: Aronchick preparation quality scale 2 (1-5) Internal hemorrhoids, grade 2 with recent inflammation No external hemorrhoids No arteriovenous malformations. No large sigmoid diverticulosis Removal of 2 polyps: - Snare polypectomy mid transverse colon at 50 cm from the anal verge, 5 mm flat tubulovillous adenoma . - Snare polypectomy of descending colon at 30 cm from the anal, 8 mm flat villous adenoma polyp. No focal colitis. RECOMMENDATIONS: Repeat colonoscopy in 3 years, 2024 Plan - Discharge Summary Discharge Rx Participant: No New Discharge Prescriptions: Continue amLODIPine [Norvasc] 10 mg PO DAILY Isosorbide Mononitrate ER [Imdur] 30 mg PO DAILY Fenofibrate Nanocrystallized [Fenofibrate] 145 mg PO DAILY Insulin Glargine [Lantus Vial] 45 unit SQ HS Sildenafil Citrate [Viagra] 100 mg PO DAILY PRN PRN Reason: E.D. Omeprazole 20 mg PO BID metFORMIN HCL [Glucophage] 1,000 mg PO BID-W/MEALS Levothyroxine Sodium [Synthroid] 175 mcg PO DAILY Gabapentin [Neurontin] 400 mg PO BID Acetaminophen [Tylenol Arthritis] 650 mg PO DAILY PRN PRN Reason: ARTHRITIS PAIN Furosemide [Lasix] 80 mg PO BID Atorvastatin Calcium [Lipitor] 20 mg PO DAILY FLUoxetine HCL [PROzac] 20 mg PO Q48H Butalb/Acetaminophen/Caffeine [Fioricet 50-300-40 mg Capsule] 1 cap PO BID PRN PRN Reason: Migraine Headache Multivitamins, Thera [Multivitamin (formulary)] 1 tab PO DAILY Discharge Medication List amLODIPine [Norvasc] 10 mg PO DAILY 10/14/14 [History] Isosorbide Mononitrate ER [Imdur] 30 mg PO DAILY 11/16/14 [History] Fenofibrate Nanocrystallized [Fenofibrate] 145 mg PO DAILY 08/08/15 [History] Acetaminophen [Tylenol Arthritis] 650 mg PO DAILY PRN 11/08/19 [History] Atorvastatin Calcium [Lipitor] 20 mg PO DAILY 11/08/19 [History] Furosemide [Lasix] 80 mg PO BID 11/08/19 [History] Gabapentin [Neurontin] 400 mg PO BID 11/08/19 [History] Insulin Glargine [Lantus Vial] 45 unit SQ HS 11/08/19 [History] Levothyroxine Sodium [Synthroid] 175 mcg PO DAILY 11/08/19 [History] Omeprazole 20 mg PO BID 11/08/19 [History] Sildenafil Citrate [Viagra] 100 mg PO DAILY PRN 11/08/19 [History] metFORMIN HCL [Glucophage] 1,000 mg PO BID-W/MEALS 11/08/19 [History] Butalb/Acetaminophen/Caffeine [Fioricet 50-300-40 mg Capsule] 1 cap PO BID PRN 04/06/20 [History] FLUoxetine HCL [PROzac] 20 mg PO Q48H 04/06/20 [History] Multivitamins, Thera [Multivitamin (formulary)] 1 tab PO DAILY 03/12/22 [History] Follow up Appointment(s)/Referral(s): Adela Blanc MD [STAFF PHYSICIAN] - 03/26/22 Patient Instructions/Handouts: *Surgery [facility] - (Anesthesia) Endoscopy Discharge Instructions, Colorectal Polyps (GEN) Activity/Diet/Wound Care/Special Instructions: Repeat colonoscopy 3 years, 2024 Discharge Disposition: HOME SELF-CARE
[2022-03-14 08:31] VITALS: BP 97/62; PULSE 87
== END 2022-03-14 08:41 | disposition home or self-care (01) ==
LOC: ORWHC2ENDO 06:14
PROVIDERS: ATTEND Surgery Plastic and Reconstructive Surgery
DX: K29.50 Unspecified chronic gastritis without bleeding (principal); D12.3 Benign neoplasm of transverse colon; K64.1 Second degree hemorrhoids; K21.9 Gastro-esophageal reflux disease without esophagitis; E66.01 Morbid (severe) obesity due to excess calories; J44.9 Chronic obstructive pulmonary disease, unspecified; E11.9 Type 2 diabetes mellitus without complications; M19.90 Unspecified osteoarthritis, unspecified site; J18.9 Pneumonia, unspecified organism; F17.200 Nicotine dependence, unspecified, uncomplicated; G47.33 Obstructive sleep apnea (adult) (pediatric); E07.9 Disorder of thyroid, unspecified; I10 Essential (primary) hypertension; F41.8 Other specified anxiety disorders; E03.9 Hypothyroidism, unspecified; G43.909 Migraine, unspecified, not intractable, without status migrainosus; Z98.890 Other specified postprocedural states; Z99.89 Dependence on other enabling machines and devices; Z82.49 Family history of ischemic heart disease and other diseases of the circulatory system; Z79.4 Long term (current) use of insulin; Z79.890 Hormone replacement therapy; Z79.899 Other long term (current) drug therapy
CPT/HCPCS: 88305; 45385; 43239; J2704; J2001

== ENCOUNTER → 2022-06-19 | Outpatient (CLI) | payer MEDICARE ==
[2022-06-19 11:51] VITALS: BP 109/63; PULSE 96; TEMP 98.1; BMI 49.1
--- NOTE | 2022-06-19 12:07 | P.PN ---
Subjective Progress Note Date: 06/19/22 Consent for sleeve reviewed. He is high risk. Objective - Vital Signs Vital signs: Vital Signs Temp 98.1 F 06/19/22 11:47 Pulse 96 06/19/22 11:47 Resp BP 109/63 06/19/22 11:47 Pulse Ox FiO2 Intake & Output 06/18/22 06/19/22 06/19/22 18:59 06:59 18:59 Weight 151.046 kg
== END ==
LOC: BARWHC3 11:10
PROVIDERS: ATTEND Surgery Plastic and Reconstructive Surgery
DX: E66.01 Morbid (severe) obesity due to excess calories (principal); Z68.42 Body mass index [BMI] 45.0-49.9, adult
CPT/HCPCS: 99211

== ENCOUNTER → 2022-07-19 | Outpatient (CLI) | payer MEDICARE ==
[2022-07-19 15:15] LABS: Basophils # (A) 0.03 X 10*3/uL (0.00-0.10); Basophils % (A) 0.4 %; Eosinophils # (A) 0.12 X 10*3/uL (0.04-0.35); Eosinophils % (A) 1.7 %; HCT 34.3 % (39.6-50.0); HGB 11.4 g/dL (13.0-17.0); Immature Grans, Automated 0.1 %; Lymphocytes # (A) 1.65 X 10*3/uL (0.90-5.00); MCH 29.8 pg (27.0-32.0); MCHC 33.2 g/dL (32.0-37.0); MCV 89.6 fL (80.0-97.0); Mean Platelet Volume 9.6 fL (9.5-12.2); Monocytes # (A) 0.51 X 10*3/uL (0.20-1.00); Monocytes % (A) 7.1 %; NRBC Per 100 WBC 0 /100 WBCS (0.0-0.0); Neutrophils # (A) 4.85 X 10*3/uL (1.80-7.70); Neutrophils % (A) 67.7 %; Platelet Count 269 X 10*3/uL (140-440); RBC 3.83 X 10*6/uL (4.40-5.60); RDW 12.5 % (11.5-14.5); WBC 7.17 X 10*3/uL (4.50-10.00)
[2022-07-19 16:04] LABS: % Iron Saturation 20.3 (15.00-50.00)
[2022-07-19 17:08] LABS: African American GFR (CKD) 19.1 (60.0-200.0); Albumin 4.7 g/dL (3.8-4.9); Albumin/Globulin Ratio 1.68 (1.60-3.17); Anion Gap 18.3 mmol/L (10.00-18.00); Calcium 10.1 mg/dL (8.7-10.3); Carbon Dioxide 24.7 mmol/L (20.0-27.5); Globulin 2.8 g/dL (1.6-3.3); Non-African American GFR(CKD) 16.5 (60.0-200.0); Total Bilirubin 0.4 mg/dL (0.30-1.20); Total Protein 7.5 g/dL (6.2-8.2)
== END | disposition home or self-care (01) ==
LOC: LABPAT 09:55
PROVIDERS: ATTEND Surgery Plastic and Reconstructive Surgery
DX: Z01.812 Encounter for preprocedural laboratory examination (principal); D50.9 Iron deficiency anemia, unspecified
CPT/HCPCS: 80053; 82728; 83540; 83550; 85025

== ENCOUNTER 2022-07-20 08:42 | Inpatient (IN) | payer MEDICARE ==
[2022-07-20] MEDS ORDERED: SODIUM CHLORIDE 0.9% 1,000 ML IV STA ×3 (08:55→09:03)
[2022-07-20] MEDS ORDERED: FAMOTIDINE 20 MG/2 ML VIAL IV STA (09:03)
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
[2022-07-20] MEDS ORDERED: ONDANSETRON 4 MG/2 ML VIAL IVP PRN (09:08)
[2022-07-20] MEDS ORDERED: ACETAMINOPHEN TAB 325 MG TAB PO PRN (09:08)
[2022-07-20] MEDS ORDERED: NALOXONE 0.4 MG/ML 1 ML VIAL IV PRN (09:08)
[2022-07-20] MEDS: SODIUM CHLORIDE 0.9% 1,000 ML IV SCH ×2 (09:19→18:16)
--- NOTE | 2022-07-20 09:41 | XR ---
EXAMINATION TYPE: XR chest 2V DATE OF EXAM: 07/20/2022 9:30 AM COMPARISON: Chest radiographs from 12/21/2015 TECHNIQUE: XR chest 2V Frontal and lateral views of the chest. CLINICAL INDICATION:Male, 47 years old with history of Weakness; FINDINGS: Lungs/Pleura: There is flattening of the diaphragm with increased lucency of the lungs. No evidence o f pneumothorax, pleural effusion or focal consolidation. Pulmonary vascularity: Unremarkable. Heart/mediastinum: Cardiomediastinal silhouette is unremarkable. Musculoskeletal: No acute osseous pathology. IMPRESSION: 1. No acute cardiopulmonary disease process. 2. COPD changes.
[2022-07-20 10:01] LABS: Basophils % (A) 0 %; Eosinophils # (A) 0.1 k/uL (0-0.7); Eosinophils % (A) 1 %; HCT 32.7 % (39.0-53.0); HGB 11.7 gm/dL (13.0-17.5); Lymphocytes # (A) 1.8 k/uL (1.0-4.8); Lymphocytes % (A) 20 %; MCHC 35.8 g/dL (31.0-37.0); MCV 86.7 fL (80.0-100.0); Mean Platelet Volume 7.8; Monocytes # (A) 0.4 k/uL (0-1.0); Monocytes % (A) 4 %; Neutrophils # (A) 6.4 k/uL (1.3-7.7); Neutrophils % (A) 72 %; Platelet Count 287 k/uL (150-450); RBC 3.77 m/uL (4.30-5.90); WBC 8.9 k/uL (3.8-10.6)
[2022-07-20 10:02] LABS: Albumin 4.5 g/dL (3.5-5.0); Calcium 9.6 mg/dL (8.4-10.2); Magnesium 2.4 mg/dL (1.6-2.3); Phosphorus 6.9 mg/dL (2.5-4.5); Potassium 5.4 mmol/L (3.5-5.1); Total Bilirubin 0.6 mg/dL (0.2-1.3); Total Protein 7.4 g/dL (6.3-8.2)
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
[2022-07-20] MEDS ORDERED: BUTALB/APAP/CAFF 50-325-40MG TAB PO PRN (10:03)
[2022-07-20] MEDS ORDERED: SODIUM CHLORIDE 0.9% 1,000 ML IV ONE (10:04)
--- NOTE | 2022-07-20 10:36 | P.PN ---
Progress Note - Text Progress Note Date: 07/20/22 Labs now available from today demonstrating worsening creatinine and kidney function from 4.0-6.4. Potassium with hyperkalemia 5.4 from 5.0. Urgent admission with urgent consultation for automotive manager. No surgical intervention for elective surgery at this time due to acute kidney failure until cleared by automotive manager. Chest x-ray review demonstrates no acute pulmonary processes or free air or consolidation. This is my independent interpretation
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
[2022-07-20 15:04] LABS: Appearance,Urine Clear (Clear); Bilirubin,Urine Negative (Negative); Blood,Urine Negative (Negative); Color,Urine Yellow; Glucose,Urine (UA) Negative (Negative); Ketones,Urine Negative (Negative); Leukocyte Esterase,Urine Negative (Negative); Nitrite,Urine Negative (Negative); Protein,Urine Trace (Negative); Specific Gravity,Urine 1.012 (1.001-1.035); Urobilinogen,Urine <2.0 mg/dL (<2.0)
[2022-07-20] MEDS ORDERED: metFORMIN 500 MG TAB PO SCH (17:30)
[2022-07-20] MEDS ORDERED: GABAPENTIN 400 MG CAP PO SCH (21:00)
[2022-07-20] MEDS: INSULIN DETEMIR (LEVEMIR) 100 UNIT/ML SYR SQ SCH (21:54)
[2022-07-20] MEDS: GABAPENTIN 100 MG CAP PO SCH (21:54)
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
[2022-07-21] MEDS: SODIUM CHLORIDE 0.9% 1,000 ML IV SCH ×3 (04:26→18:45)
[2022-07-21] MEDS: LEVOTHYROXINE 88 MCG TAB PO SCH (05:47)
[2022-07-21] MEDS: GABAPENTIN 100 MG CAP PO SCH ×2 (07:48→21:00)
[2022-07-21] MEDS: ISOSORBIDE MONONITRATE ER 30 MG TAB.ER.24H PO SCH (07:48)
[2022-07-21] MEDS: FLUoxetine HCL 20 MG CAP PO SCH (07:49)
[2022-07-21] MEDS: FENOFIBRATE 160 MG TAB PO SCH (07:49)
[2022-07-21] MEDS: PANTOPRAZOLE 40 MG/10 ML VIAL IV SCH (07:49)
[2022-07-21 09:14] LABS: Magnesium 2.7 mg/dL (1.5-2.4); Phosphorus 4.8 mg/dL (2.4-5.1)
[2022-07-21 09:28] LABS: African American GFR (CKD) 17.5 (60.0-200.0); Albumin 3.9 g/dL (3.8-4.9); Albumin/Globulin Ratio 1.7 (1.60-3.17); Anion Gap 11.3 mmol/L (10.00-18.00); BUN/Creat Ratio 23.49 Ratio (12.00-20.00); Calcium 9.3 mg/dL (8.7-10.3); Carbon Dioxide 25.7 mmol/L (20.0-27.5); Globulin 2.3 g/dL (1.6-3.3); Non-African American GFR(CKD) 15.1 (60.0-200.0); Potassium 4.9 mmol/L (3.5-5.5); Total Bilirubin 0.2 mg/dL (0.30-1.20); Total Protein 6.2 g/dL (6.2-8.2)
[2022-07-21 09:44] LABS: Basophils # (A) 0.01 X 10*3/uL (0.00-0.10); Basophils % (A) 0.2 %; Eosinophils % (A) 1.6 %; HCT 30.1 % (39.6-50.0); HGB 9.9 g/dL (13.0-17.0); Immature Grans, Automated 0.3 %; Lymphocytes # (A) 1.59 X 10*3/uL (0.90-5.00); Lymphocytes % (A) 24.8 %; MCH 30.4 pg (27.0-32.0); MCHC 32.9 g/dL (32.0-37.0); MCV 92.3 fL (80.0-97.0); Mean Platelet Volume 9.6 fL (9.5-12.2); Monocytes # (A) 0.41 X 10*3/uL (0.20-1.00); Monocytes % (A) 6.4 %; NRBC Per 100 WBC 0 /100 WBCS (0.0-0.0); Neutrophils # (A) 4.27 X 10*3/uL (1.80-7.70); Neutrophils % (A) 66.7 %; Platelet Count 232 X 10*3/uL (140-440); RBC 3.26 X 10*6/uL (4.40-5.60); RDW 12.7 % (11.5-14.5)
--- NOTE | 2022-07-21 10:37 | P.PN ---
Subjective Patient is seen for follow-up for acute kidney injury. History of nausea vomiting and decreased oral intake prior to admission ex Blood pressure was 79/50 on initial admission. Currently maintained on IV fluids. Serum creatinine improved from 6.4-4.3 today. Indwelling Roth catheter placed with 360 mL noted on initial catheter placement. Objective - Vital Signs Vital signs: Vital Signs Temp 98.1 F 07/21/22 07:03 Pulse 76 07/21/22 07:03 Resp 16 07/21/22 07:03 BP 106/65 07/21/22 07:03 Pulse Ox 95 07/21/22 07:03 FiO2 Intake & Output 07/20/22 07/21/22 07/21/22 18:59 06:59 18:59 Intake Total 1430 Output Total 360 3625 Balance -360 -2195 Weight 146.51 kg Intake: Intake, IV Titration 1430 Amount Sodium Chloride 0.9% 1, 1430 000 ml @ 130 mls/hr IV . Q7H42M ON LICENSE OF [facility] Rx#:[id number] Output: Urine 360 3625 Uretheral (Roth) 360 Other: Voiding Method Toilet Indwelling Catheter Indwelling Catheter Urinal - Exam Patient is awake, comfortable, no acute distress Examination of the heart S1 and S2 Examination of the lungs bilateral breath sounds are heard Abdomen is soft nontender, obese Examination of lower extremity shows no significant edema, ALL BOOT RIGHT LEG STEWARD/STEWARDESS DECK exam grossly intact - Labs CBC & Chem 7: 07/21/22 05:28 07/21/22 05:28 Labs: Abnormal Lab Results - Last 24 Hours (Table) 07/20/22 07/21/22 07/21/22 Range/Units 09:15 05:28 05:28 RBC 3.26 L (4.40-5.60) X 10*6/uL Hgb 9.9 L (13.0-17.0) g/dL Hct 30.1 L (39.6-50.0) % BUN 101.0 H* (9.0-27.0) mg/dL Creatinine 4.3 H (0.6-1.5) mg/dL Est GFR (CKD-EPI)AfAm 17.5 L (60.0-200.0) Est GFR (CKD-EPI)NonAf 15.1 L (60.0-200.0) BUN/Creatinine Ratio 23.49 H (12.00-20.00) Ratio Magnesium 2.7 H (1.5-2.4) mg/dL Total Bilirubin 0.20 L (0.30-1.20) mg/dL AST 65 H (14-35) U/L ALT 86 H (10-49) U/L Alkaline Phosphatase 32 L (41-126) U/L Urine Protein Trace H (Negative) Assessment and Plan Assessment: 1. Acute kidney injury secondary to hypotension and hypovolemia and possibly from urine retention. Status post Roth catheter placement. Maintained on IV fluids with improving renal function. 2. Hyperkalemia associated with acute kidney injury 3. Hypotension secondary to hypovolemia 4. Morbid obesity scheduled for sleeve gastrectomy on 07/29/2022 and maintained on a low carb diet for about 2 weeks 5. Type 2 diabetes with history of diabetic kidney disease 6. Chronic kidney disease most likely secondary to diabetic kidney disease how ever need to rule out acute kidney injury process that may have started in May 2022 as previous creatinine was 0.7 on 04/08/2020 Plan: Continue with IV fluids Continue with Roth catheter Avoid nephrotoxic agents Repeat labs in a.m.
[2022-07-21] MEDS ORDERED: DEXTROSE 50% SYRINGE 50 ML IVP PRN ×2 (18:02)
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
[2022-07-21] MEDS: INSULIN ASPART (NovoLOG) 100 UNIT/ML VIAL SQ SCH (18:41)
[2022-07-21] MEDS: INSULIN DETEMIR (LEVEMIR) 100 UNIT/ML SYR SQ SCH (21:00)
--- NOTE | 2022-07-21 21:03 | P.PN ---
Subjective Progress Note Date: 07/21/22 CHIEF COMPLAINT: Nausea vomiting, acute renal failure HISTORY OF PRESENT ILLNESS: The patient is a 47 year old male with morbid obesity, BMI 46.3, hypertensive heart disease with congestive heart failure, diabetes type 2 with nephropathy, hyperlipidemia, chronic obstructive pulmonary disease, obstructive sleep apnea who is undergoing preparation for sleeve gastrectomy for 07/29/2022. Patient reports feeling defeated due to acute renal failure. Kidney function is slowly improving. He is tolerating diet. Denies acute abdominal pain. REVIEW OF ORGAN SYSTEMS: CONSTITUTIONAL: No fevers or chills. Has recent intentional weight loss over 15 pounds in 2 weeks. CARDIOVASCULAR: Has hypertensive heart disease with schema cardiomyopathy, congestive heart failure. GASTROINTESTINAL: Presents with nausea and vomiting. Chronic anemia, hemoglobin 11.1 baseline. Has gastroesophageal reflux disease. GENITOURINARY: Denies any blood in urine or increased urinary frequency. NEUROLOGICAL: Has neuropathy. Has migraines and headaches. MUSCULOSKELETAL: Has back pain, stiffness or joint arthritis. Ambulates with cane. Has walking boot, right leg. PHYSICAL EXAM: VITALS: Reviewed CONSTITUTIONAL: Well developed and in no acute distress. EYES: Conjuctivae without sclera icterus. Extraocular movements grossly intact. HEAD, EARS, NOSE, THROAT: Moist buccal mucosa. Head is atraumatic, normoce phalic. Hears conversational speech. No nasal drainage. NECK: Supple. No JV distention. No thyroidomegaly. RESPIRATORY: Non-labored respirations and equal bilateral excursions. No gross wheezes. CARDIOVASCULAR: Palpable 2+ radial pulses. ABDOMEN: Protuberant. No peritonitis. LYMPH: No neck lymphadenopathy. MUSCULOSKELETAL: Has right walking boot. Ambulance with cane. SKIN: Warm and well perfused with good skin turgor. NEUROLOGIC: Cranial nerves II through XII grossly intact. No focal or lateralizing signs. PSYCH: Appropriate affect. Alert and oriented to person, place and time. Displays appropriate insight. CLINCAL LABS: Reviewed. WBC normal 6.4. Creatinine down 6.4-4.3. Potassium down to 5.0-4.9. ASSESSMENT: 1. Acute renal failure with nausea and vomiting 2. Acute kidney injury due to dehydration, medications, high-protein diet 3. Morbid obesity excess calories, BMI 46.3 4. Chronic anemia 5. Elevated LFTs 6. Chronic obstructive pulmonary disease 7. Obstructive sleep apnea 8. Hypothyroidism 9. Gastroesophageal reflux disease 10. Diabetes type 2 with neuropathy complications 11. Diabetes type 2 with nephrology complications, stage III renal disease 12. Dehydration 13. Hypertensive heart disease with congestive heart failure 14. Acute hypotension 15. Hyponatremia 16. Generalized anxiety disorder 17. Depressive disorder 18. Hyperlipidemia 19. Diabetic neuropathy 20. Chronic insulin use PLAN: 1. At this time, pending improvement of kidney function prior to surgical intervention. Nephrology clearance needed prior to sleeve gastrectomy. 2. Renal diet. 3. IV fluid hydration. 4. Recommend avoiding antihypertensives. Objective - Vital Signs Vital signs: Vital Signs Temp 98.2 F 07/21/22 20:00 Pulse 85 07/21/22 20:00 Resp 17 07/21/22 20:00 BP 134/69 07/21/22 20:00 Pulse Ox 93 L 07/21/22 20:00 FiO2 Intake & Output 07/21/22 07/21/22 07/22/22 06:59 18:59 06:59 Intake Total 1430 Output Total 3625 3050 Balance -2195 -3050 Intake: Intake, IV Titration 1430 Amount Sodium Chloride 0.9% 1, 1430 000 ml @ 130 mls/hr IV . Q7H42M [facility] Rx#:[id number] Output: Urine 3625 3050 Other: Voiding Method Indwelling Catheter Indwelling Catheter - Labs CBC & Chem 7: 07/21/22 05:28 07/21/22 05:28 Labs: Abnormal Lab Results - Last 24 Hours (Table) 07/21/22 07/21/22 Range/Units 05:28 05:28 RBC 3.26 L (4.40-5.60) X 10*6/uL Hgb 9.9 L (13.0-17.0) g/dL Hct 30.1 L (39.6-50.0) % BUN 101.0 H* (9.0-27.0) mg/dL Creatinine 4.3 H (0.6-1.5) mg/dL Est GFR (CKD-EPI)AfAm 17.5 L (60.0-200.0) Est GFR (CKD-EPI)NonAf 15.1 L (60.0-200.0) BUN/Creatinine Ratio 23.49 H (12.00-20.00) Ratio Magnesium 2.7 H (1.5-2.4) mg/dL Total Bilirubin 0.20 L (0.30-1.20) mg/dL AST 65 H (14-35) U/L ALT 86 H (10-49) U/L Alkaline Phosphatase 32 L (41-126) U/L
[2022-07-21 21:05] LABS: Glucose,Whole Blood 148 mg/dL (70-110)
[2022-07-22] MEDS: SODIUM CHLORIDE 0.9% 1,000 ML IV SCH ×3 (00:54→17:36)
[2022-07-22] MEDS: LEVOTHYROXINE 88 MCG TAB PO SCH (06:11)
[2022-07-22] MEDS: INSULIN ASPART (NovoLOG) 100 UNIT/ML VIAL SQ SCH ×3 (06:25→17:08)
[2022-07-22 06:35] LABS: Glucose,Whole Blood 78 mg/dL (70-110)
[2022-07-22 07:32] LABS: African American GFR (CKD) 32 (>60 ml/min/1.73 sqM); Anion Gap 7 mmol/L; Blood Urea Nitrogen 59 mg/dL (9-20); Calcium 9.1 mg/dL (8.4-10.2); Carbon Dioxide 25 mmol/L (22-30); Chloride 110 mmol/L (98-107); Glucose 73 mg/dL (74-99); Non-African American GFR(CKD) 27 (>60 ml/min/1.73 sqM); Potassium 4.9 mmol/L (3.5-5.1); Sodium 142 mmol/L (137-145)
[2022-07-22] MEDS: PANTOPRAZOLE 40 MG/10 ML VIAL IV SCH (08:27)
[2022-07-22] MEDS: GABAPENTIN 100 MG CAP PO SCH ×2 (08:27→21:27)
[2022-07-22] MEDS: FENOFIBRATE 160 MG TAB PO SCH (08:27)
[2022-07-22] MEDS: ISOSORBIDE MONONITRATE ER 30 MG TAB.ER.24H PO SCH (08:27)
[2022-07-22] MEDS: FLUoxetine HCL 20 MG CAP PO SCH (08:27)
[2022-07-22 11:31] LABS: Glucose,Whole Blood 163 mg/dL (70-110)
--- NOTE | 2022-07-22 11:40 | P.PN ---
Subjective Patient is seen in follow-up for acute kidney injury. Blood pressure better. Has Roth catheter. Nonoliguric. Renal function improving. Creatinine 2.62 today. Receiving IV fluids. Denies vomiting or diarrhea. Vital signs are stable. General: No acute distress. HEENT: Head exam is unremarkable. LUNGS: No audible rhonchi or wheezes. HEART: Rate and Rhythm are regular. ABDOMEN: Nontender. EXTREMITITES: No edema. Objective - Vital Signs Vital signs: Vital Signs Temp 96.8 F L 07/22/22 07:13 Pulse 67 07/22/22 07:13 Resp 17 07/22/22 07:13 BP 115/72 07/22/22 07:13 Pulse Ox 95 07/22/22 07:13 FiO2 Intake & Output 07/21/22 07/22/22 07/22/22 18:59 06:59 18:59 Output Total 3050 2430 Balance -3050 -2430 Output: Urine 3050 2430 Uretheral (Roth) 1000 Other: Voiding Method Indwelling Catheter Indwelling Catheter Indwelling Catheter - Labs CBC & Chem 7: 07/21/22 05:28 07/22/22 06:35 Labs: Abnormal Lab Results - Last 24 Hours (Table) 07/21/22 07/22/22 07/22/22 Range/Units 21:03 06:35 11:29 Chloride 110 H (98-107) mmol/L BUN 59 H (9-20) mg/dL Creatinine 2.62 H (0.66-1.25) mg/dL Glucose 73 L (74-99) mg/dL POC Glucose (mg/dL) 148 H 163 H (70-110) mg/dL Assessment and Plan Plan: Assessment: 1. Acute kidney injury secondary to ATN secondary to hypotension and urinary retention. Improving. Creatinine was 6.4 on admission and is 2.6 today. Nonoliguric. Baseline creatinine near 1 in 2019 and 2020. No hydronephrosis noted on kidney ultrasound. UA fairly benign. Trace proteinuria on UA possibly from underlying diabetic kidney disease. Further workup outpatient. 2. Hyperkalemia secondary to acute kidney injury. Resolved. 3. Hypotension secondary to hypovolemia. Improved. Antihypertensives held. 4. Morbid obesity. Scheduled for a sleeve gastrectomy later this month. 5. Diabetes mellitus. 6. Urinary retention. Has Roth catheter. Plan: Decrease rate of normal saline to 80 mL an hour. Maintain Roth catheter. Add Flomax. Encouraged oral intake. Avoid nephrotoxins. Continue to monitor renal function and urine output.
--- NOTE | 2022-07-22 12:42 | P.PN ---
Subjective Progress Note Date: 07/22/22 CHIEF COMPLAINT: Nausea vomiting, acute renal failure HISTORY OF PRESENT ILLNESS: Patient reports improvement in his nausea and vomiting. He denies any abdominal pain. He is admitted to the hospital with acute kidney injury. Creatinine is down from 4-2.62. He is followed by nephrology. Receiving IV fluids. Afebrile. BUN 101 down to 59 creatinine 4.3 down to 2.62 PHYSICAL EXAM: VITAL SIGNS: Reviewed GENERAL: Well-developed in no acute distress. HEENT: No sclera icterus. Extraocular movements grossly intact. Moist buccal mucosa. Head is atraumatic, normocephalic. Hears conversational speech. No nasal drainage. NECK: Supple without lymphadenopathy. CHEST: Non-labored respirations and equal bilateral excursions. CARDIOVASCULAR: Palpable 2+ radial pulses. ABDOMEN: Soft. obese. Nondistended. Nontender. MUSCULOSKELETAL: No clubbing or cyanosis. NEUROLOGIC: No focal or lateralizing signs. Cranial nerves II through XII grossly intact. PSYCH: Appropriate affect. Alert and oriented to person, place and time. SKIN: Well perfused. Good skin turgor. ASSESSMENT: 1. Acute renal failure with nausea and vomiting 2. Acute kidney injury due to dehydration, medications, high-protein diet 3. Morbid obesity excess calories, BMI 46.3 4. Chronic anemia 5. Elevated LFTs 6. Chronic obstructive pulmonary disease 7. Obstructive sleep apnea 8. Hypothyroidism 9. Gastroesophageal reflux disease 10. Diabetes type 2 with neuropathy complications 11. Diabetes type 2 with nephrology complications, stage III renal disease 12. Dehydration 13. Hypertensive heart disease with congestive heart failure 14. Acute hypotension 15. Hyponatremia 16. Generalized anxiety disorder 17. Depressive disorder 18. Hyperlipidemia 19. Diabetic neuropathy 20. Chronic insulin use PLAN: -Acute kidney injury management per nephrology -Awaiting nephrology clearance before proceeding with sleeve gastrectomy next 07/29/2022 -Continue IV fluids -Avoid nephrotoxic medications Physician Front Sight Attacher note has been reviewed by physician. Signing provider agrees with the documented findings, assessment, and plan of care. CHIEF COMPLAINT: Nausea vomiting, acute renal failure HISTORY OF PRESENT ILLNESS: The patient is a 47 year old male with morbid obesity presents with acute renal failure. Denies acute abdominal pain. He is being managed by nephrology. REVIEW OF ORGAN SYSTEMS: CONSTITUTIONAL: No fevers or chills. Has recent intentional weight loss over 15 pounds in 2 weeks. CARDIOVASCULAR: Has hypertensive heart disease with schema cardiomyopathy, congestive heart failure. GASTROINTESTINAL: Presents with nausea and vomiting. Chronic anemia, hemoglobin 11.1 baseline. Has gastroesophageal reflux disease. GENITOURINARY: Denies any blood in urine or increased urinary frequency. NEUROLOGICAL: Has neuropathy. Has migraines and headaches. MUSCULOSKELETAL: Has back pain, stiffness or joint arthritis. Ambulates with cane. Has walking boot, right leg. PHYSICAL EXAM: VITALS: Reviewed CONSTITUTIONAL: Well developed and in no acute distress. EYES: Conjuctivae without sclera icterus. Extraocular movements grossly intact. HEAD, EARS, NOSE, THROAT: Moist buccal mucosa. Head is atraumatic, normocephalic. Hears conversational speech. No nasal drainage. RESPIRATORY: Non-labored respirations and equal bilateral excursions. No gross wheezes. CARDIOVASCULAR: Palpable 2+ radial pulses. ABDOMEN: Protuberant. No peritonitis. MUSCULOSKELETAL: Has right walking boot. Ambulance with cane. SKIN: Warm and well perfused with good skin turgor. NEUROLOGIC: Cranial nerves II through XII grossly intact. No focal or lateralizing signs. PSYCH: Appropriate affect. Alert and oriented to person, place and time. Displays appropriate insight. CLINCAL LABS: Reviewed. Creatinine down 6.4-4.3, now 2.6. ASSESSMENT: 1. Acute renal failure with nausea and vomiting 2. Acute kidney injury due to dehydration, medications, high-protein diet 3. Morbid obesity excess calories, BMI 46.3 4. Chronic anemia 5. Elevated LFTs 6. Chronic obstructive pulmonary disease 7. Obstructive sleep apnea 8. Hypothyroidism 9. Gastroesophageal reflux disease 10. Diabetes type 2 with neuropathy complications 11. Diabetes type 2 with nephrology complications, stage III renal disease 12. Dehydration 13. Hypertensive heart disease with congestive heart failure 14. Acute hypotension 15. Hyponatremia 16. Generalized anxiety disorder 17. Depressive disorder 18. Hyperlipidemia 19. Diabetic neuropathy 20. Chronic insulin use PLAN: 1. Kidney function is improving. Pending nephrology clearance to proceed with sleeve gastrectomy 2. Avoidance of antihypertensive medications and nephrotoxic agents 3. Avoid high-protein diet to to acute kidney injury 4. Disposition pending clearance from nephrology Objective - Vital Signs Vital signs: Vital Signs Temp 96.8 F L 07/22/22 07:13 Pulse 67 07/22/22 07:13 Resp 17 07/22/22 07:13 BP 115/72 07/22/22 07:13 Pulse Ox 95 07/22/22 07:13 FiO2 Intake & Output 07/21/22 07/22/22 07/22/22 18:59 06:59 18:59 Output Total 3050 2430 Balance -3050 -2430 Output: Urine 3050 2430 Uretheral (Roth) 1000 Other: Voiding Method Indwelling Catheter Indwelling Catheter Indwelling Catheter - Labs CBC & Chem 7: 07/21/22 05:28 07/22/22 06:35 Labs: Abnormal Lab Results - Last 24 Hours (Table) 07/21/22 07/22/22 07/22/22 Range/Units 21:03 06:35 11:29 Chloride 110 H (98-107) mmol/L BUN 59 H (9-20) mg/dL Creatinine 2.62 H (0.66-1.25) mg/dL Glucose 73 L (74-99) mg/dL POC Glucose (mg/dL) 148 H 163 H (70-110) mg/dL
[2022-07-22] MEDS: TAMSULOSIN 0.4 MG CAP.ER.24H PO SCH (13:35)
[2022-07-22 17:05] LABS: Glucose,Whole Blood 134 mg/dL (70-110)
[2022-07-22 21:34] LABS: Glucose,Whole Blood 115 mg/dL (70-110)
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
[2022-07-22] MEDS: INSULIN DETEMIR (LEVEMIR) 100 UNIT/ML SYR SQ SCH (21:43)
[2022-07-23 06:13] LABS: Glucose,Whole Blood 83 mg/dL (70-110)
[2022-07-23] MEDS: SODIUM CHLORIDE 0.9% 1,000 ML IV SCH (06:37)
[2022-07-23] MEDS: INSULIN ASPART (NovoLOG) 100 UNIT/ML VIAL SQ SCH ×2 (06:37→12:11)
[2022-07-23] MEDS: LEVOTHYROXINE 88 MCG TAB PO SCH (06:40)
[2022-07-23] MEDS ORDERED: PANTOPRAZOLE 40 MG TABLET PO SCH (07:30)
[2022-07-23 08:42] LABS: African American GFR (CKD) 42 (>60 ml/min/1.73 sqM); Anion Gap 9 mmol/L; Blood Urea Nitrogen 32 mg/dL (9-20); Calcium 9.3 mg/dL (8.4-10.2); Carbon Dioxide 22 mmol/L (22-30); Chloride 111 mmol/L (98-107); Glucose 86 mg/dL (74-99); Magnesium 2.1 mg/dL (1.6-2.3); Non-African American GFR(CKD) 36 (>60 ml/min/1.73 sqM); Potassium 4.9 mmol/L (3.5-5.1); Sodium 142 mmol/L (137-145)
[2022-07-23] MEDS: GABAPENTIN 100 MG CAP PO SCH (08:48)
[2022-07-23] MEDS: FENOFIBRATE 160 MG TAB PO SCH (08:48)
[2022-07-23] MEDS: TAMSULOSIN 0.4 MG CAP.ER.24H PO SCH (08:48)
[2022-07-23] MEDS: FLUoxetine HCL 20 MG CAP PO SCH (08:48)
[2022-07-23] MEDS: ISOSORBIDE MONONITRATE ER 30 MG TAB.ER.24H PO SCH (08:48)
--- NOTE | 2022-07-23 10:22 | P.PN ---
Subjective Patient is seen in follow-up for acute kidney injury. Blood pressure better. Has Roth catheter. Nonoliguric. Renal function improving. Creatinine 2.1 today. Receiving IV fluids. Denies vomiting or diarrhea. Vital signs are stable. General: No acute distress. HEENT: Head exam is unremarkable. LUNGS: No audible rhonchi or wheezes. HEART: Rate and Rhythm are regular. ABDOMEN: Nontender. EXTREMITITES: No edema. Objective - Vital Signs Vital signs: Vital Signs Temp 97.8 F 07/23/22 07:15 Pulse 75 07/23/22 08:30 Resp 17 07/23/22 07:15 BP 122/82 07/23/22 07:15 Pulse Ox 92 L 07/23/22 07:15 FiO2 Intake & Output 07/22/22 07/23/22 07/23/22 18:59 06:59 18:59 Output Total 2800 1400 1050 Balance -2800 -1400 -1050 Output: Urine 2800 1400 1050 Uretheral (Roth) 2800 850 Other: Voiding Method Indwelling Catheter Indwelling Catheter Indwelling Catheter # Bowel Movements 1 - Labs CBC & Chem 7: 07/21/22 05:28 07/23/22 07:26 Labs: Abnormal Lab Results - Last 24 Hours (Table) 07/22/22 07/22/22 07/22/22 Range/Units 11:29 17:03 21:32 Chloride (98-107) mmol/L BUN (9-20) mg/dL Creatinine (0.66-1.25) mg/dL POC Glucose (mg/dL) 163 H 134 H 115 H (70-110) mg/dL 07/23/22 Range/Units 07:26 Chloride 111 H (98-107) mmol/L BUN 32 H (9-20) mg/dL Creatinine 2.10 H (0.66-1.25) mg/dL POC Glucose (mg/dL) (70-110) mg/dL Assessment and Plan Plan: Assessment: 1. Acute kidney injury secondary to ATN secondary to hypotension and urinary retention. Improving. Creatinine was 6.4 on admission and is 2.1 today. Nonoliguric. Baseline creatinine near 1 in 2019 and 2020. No hydronephrosis noted on kidney ultrasound. UA fairly benign. Trace proteinuria on UA possibly from underlying diabetic kidney disease. Further workup outpatient. 2. Hyperkalemia secondary to acute kidney injury. Resolved. 3. Hypotension secondary to hypovolemia. Improved. Antihypertensives held. 4. Morbid obesity. Scheduled for a sleeve gastrectomy later this month. 5. Diabetes mellitus. 6. Urinary retention. Has Roth catheter. On Flomax. Plan: Hep-Lock IV fluids. Okay to DC Roth catheter from nephrology standpoint. Monitor serial postvoid residuals.q Encouraged oral intake. Avoid nephrotoxins. Continue to monitor renal function and urine output.
[2022-07-23 11:04] LABS: Glucose,Whole Blood 153 mg/dL (70-110)
[2022-07-23 13:11] VITALS: BP 118/74; PULSE 85; RESP 16; TEMP 97.4
--- NOTE | 2022-07-23 13:53 | P.DS ---
Providers Date of admission: 07/20/22 09:08 Expected date of discharge: 07/23/22 Attending physician: Adela Blanc Consults: 07/20/22 09:08 Consult Physician Routine Consulting Provider: Tavia Baird Consult Reason/Comments: [email or web address] Do you want consulting provider notified?: Yes 07/20/22 10:03 Consult Physician Routine Consulting Provider: González Wilson Consult Reason/Comments: Medical managment Do you want consulting provider notified?: Already Contacted Primary care physician: Krystian [facility] Course: Discharge diagnosis 1. Acute renal failure with nausea and vomiting 2. Acute kidney injury due to dehydration, medications, high-protein diet 3. Morbid obesity excess calories, BMI 46.3 4. Chronic anemia 5. Elevated LFTs 6. Chronic obstructive pulmonary disease 7. Obstructive sleep apnea 8. Hypothyroidism 9. Gastroesophageal reflux disease 10. Diabetes type 2 with neuropathy complications 11. Diabetes type 2 with nephrology complications, stage III renal disease 12. Dehydration 13. Hypertensive heart disease with congestive heart failure 14. Acute hypotension 15. Hyponatremia 16. Generalized anxiety disorder 17. Depressive disorder 18. Hyperlipidemia 19. Diabetic neuropathy 20. Chronic insulin use Hospital course This is a 47-year-old male who presented to the hospital with evidence of acute kidney injury and hypotension. He was having nausea and vomiting. Patient was given IV fluids. He's been seen evaluated by nephrology. Medications have been adjusted. His kidney function has shown improvement. Creatinine is down to 2.10. Patient has been cleared for discharge by nephrology and medicine service. His blood pressure show improvement as well. Nephrology is also cleared patient for his sleep gastrectomy on Friday. Patient denies any abdominal pain. He is tolerating diet. He's afebrile. He is up and ambulating. Patient is stable for discharge. Physician Mortgage Loan Assistant note has been reviewed by physician. Signing provider agrees with the documented findings, assessment, and plan of care. Please see additional documentation below Patient presented with acute kidney injury multifactorial including nephrotoxic agents, dehydration, antihypertensive, high-protein low-carb diet. Nephrology consultation performed with creatinine near baseline. No abdominal pain. Patient cleared to proceed with sleeve gastrectomy. Stable for discharge with follow-up in 1 week for surgery. Patient Condition at Discharge: Stable Plan - Discharge Summary New Discharge Prescriptions: New Tamsulosin [Flomax] 0.4 mg PO -BRKFST #30 cap Acetaminophen Tab [Tylenol] 650 mg PO Q6HR PRN tab PRN Reason: Mild Pain Or Fever > 100.5 Continue Isosorbide Mononitrate ER [Imdur] 30 mg PO DAILY Fenofibrate Nanocrystallized [Fenofibrate] 145 mg PO DAILY Insulin Glargine [Lantus Vial] 45 unit SQ HS Sildenafil Citrate [Viagra] 100 mg PO DAILY PRN PRN Reason: E.D. Omeprazole 20 mg PO BID metFORMIN HCL [Glucophage] 1,000 mg PO BID-W/MEALS Levothyroxine Sodium [Synthroid] 175 mcg PO DAILY Atorvastatin Calcium [Lipitor] 20 mg PO DAILY FLUoxetine HCL [PROzac] 20 mg PO DAILY Butalb/Acetaminophen/Caffeine [Fioricet 50-300-40 mg Capsule] 1 cap PO BID PRN PRN Reason: Migraine Headache Multivitamins, Thera [Multivitamin (formulary)] 1 tab PO DAILY Famotidine [Pepcid] 20 mg PO BID Changed Gabapentin [Neurontin] 400 mg PO HS #0 Discontinued amLODIPine [Norvasc] 10 mg PO DAILY Furosemide [Lasix] 80 mg PO BID Enalapril [Vasotec] 10 mg PO DAILY Discharge Medication List Isosorbide Mononitrate ER [Imdur] 30 mg PO DAILY 11/16/14 [History] Fenofibrate Nanocrystallized [Fenofibrate] 145 mg PO DAILY 08/08/15 [History] Atorvastatin Calcium [Lipitor] 20 mg PO DAILY 11/08/19 [History] Insulin Glargine [Lantus Vial] 45 unit SQ HS 11/08/19 [History] Levothyroxine Sodium [Synthroid] 175 mcg PO DAILY 11/08/19 [History] Omeprazole 20 mg PO BID 11/08/19 [History] Sildenafil Citrate [Viagra] 100 mg PO DAILY PRN 11/08/19 [History] metFORMIN HCL [Glucophage] 1,000 mg PO BID-W/MEALS 11/08/19 [History] Butalb/Acetaminophen/Caffeine [Fioricet 50-300-40 mg Capsule] 1 cap PO BID PRN 04/06/20 [History] FLUoxetine HCL [PROzac] 20 mg PO DAILY 04/06/20 [History] Multivitamins, Thera [Multivitamin (formulary)] 1 tab PO DAILY 03/12/22 [History] Famotidine [Pepcid] 20 mg PO BID 07/20/22 [History] Acetaminophen Tab [Tylenol] 650 mg PO Q6HR PRN tab 07/23/22 [Rx] Gabapentin [Neurontin] 400 mg PO HS #0 07/23/22 [Rx] Tamsulosin [Flomax] 0.4 mg PO PC-BRKFST #30 cap 07/23/22 [Rx] Follow up Appointment(s)/Referral(s): Krystian Burnham MD [Primary Care Provider] - 1-2 days Deo Nunez DO [STAFF PHYSICIAN] - 1 Week Adela Blanc MD [STAFF PHYSICIAN] - 07/29/22 Patient Instructions/Handouts: Acute Kidney Injury (DC) Discharge Disposition: HOME SELF-CARE
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
== END 2022-07-23 15:28 | disposition home or self-care (01) | DRG 683 ==
LOC: EC 08:42 → 4SSUR 09:08
PROVIDERS: ADMIT Surgery Plastic and Reconstructive Surgery; ATTEND Surgery Plastic and Reconstructive Surgery
DX: N17.0 Acute kidney failure with tubular necrosis (principal); E87.1 Hypo-osmolality and hyponatremia; I13.0 Hypertensive heart and chronic kidney disease with heart failure and stage 1 through stage 4 chronic kidney disease, or unspecified chronic kidney disease; Z68.42 Body mass index [BMI] 45.0-49.9, adult; D63.1 Anemia in chronic kidney disease; E11.22 Type 2 diabetes mellitus with diabetic chronic kidney disease; I95.9 Hypotension, unspecified; I50.9 Heart failure, unspecified; E86.0 Dehydration; E11.40 Type 2 diabetes mellitus with diabetic neuropathy, unspecified; E66.01 Morbid (severe) obesity due to excess calories; N18.30 Chronic kidney disease, stage 3 unspecified; J44.9 Chronic obstructive pulmonary disease, unspecified; Z79.4 Long term (current) use of insulin; K76.0 Fatty (change of) liver, not elsewhere classified; F32.A Depression, unspecified; F41.1 Generalized anxiety disorder; G47.33 Obstructive sleep apnea (adult) (pediatric); I25.5 Ischemic cardiomyopathy; K21.9 Gastro-esophageal reflux disease without esophagitis; G43.909 Migraine, unspecified, not intractable, without status migrainosus; E03.9 Hypothyroidism, unspecified; E86.1 Hypovolemia; E78.5 Hyperlipidemia, unspecified; E87.5 Hyperkalemia; G89.29 Other chronic pain; M19.90 Unspecified osteoarthritis, unspecified site; R94.5 Abnormal results of liver function studies; Z79.84 Long term (current) use of oral hypoglycemic drugs; Z79.890 Hormone replacement therapy; Z79.899 Other long term (current) drug therapy; Z87.891 Personal history of nicotine dependence; Z86.718 Personal history of other venous thrombosis and embolism
CPT/HCPCS: 71046; 76770; 80048; 80053; 81003; 83735; 84100; 85025; 93005; 96361; 96374; 99285

== ENCOUNTER 2022-07-29 08:00 | Inpatient (IN) | payer MEDICARE ==
--- NOTE | 2022-07-19 18:09 | P.PN ---
Progress Note - Text Progress Note Date: 07/19/22 Critical labs from 07/19/22 notified from ER. Labs reviewed with new acute kidney failure. Patient immediately notified to discontinue high protein diet, stop lasix, hydrochlorothiazide, norvasc due to new kidney failure. He states "I feel fine." Patient told to go to [facility] ER for admission for acute kidney failure, IV fluids, and consultation to nephrology. Patient has surgery in 10 days 07/29/22.
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
[~2022-07-29 08:00] MED LIST changes: +CHLORHEXIDINE GLUCONATE 15 ML CUP MUCOUS MEM PRN; +DEXAMETHASONE SOD PHOSPHATE 4 MG/ML 1 ML VIAL IV ONE; +ENOXAPARIN 40 MG/0.4 ML SYRINGE SQ PRN; -LACTATED RINGERS 1,000 ML IV SCH; +LIDOCAINE 1% (10MG/ML) FOR IV START INTRADERMA PRN; +MIDAZOLAM 2 MG/2 ML VIAL IV PRN; +ONDANSETRON 4 MG/2 ML VIAL IVP ONE; +PANTOPRAZOLE 40 MG/10 ML VIAL IVP PRN; +ceFAZolin 3 GM in SODIUM CHLORIDE 0.9% 100 ML IVPB PRN
[2022-07-29] MEDS: LACTATED RINGERS 1,000 ML IV SCH (08:44)
[2022-07-29 08:58] LABS: Glucose,Whole Blood 72 mg/dL (70-110)
[2022-07-29 09:02] LABS: Basophils % (A) 0 %; Eosinophils # (A) 0.2 k/uL (0-0.7); Eosinophils % (A) 2 %; HCT 34.2 % (39.0-53.0); HGB 11.8 gm/dL (13.0-17.5); Lymphocytes # (A) 1.1 k/uL (1.0-4.8); Lymphocytes % (A) 14 %; MCH 31.3 pg (25.0-35.0); MCHC 34.4 g/dL (31.0-37.0); MCV 90.8 fL (80.0-100.0); Mean Platelet Volume 7.6; Monocytes # (A) 0.3 k/uL (0-1.0); Monocytes % (A) 3 %; Neutrophils # (A) 6.2 k/uL (1.3-7.7); Neutrophils % (A) 79 %; Platelet Count 267 k/uL (150-450); RBC 3.76 m/uL (4.30-5.90); RDW 12.8 % (11.5-15.5); WBC 7.8 k/uL (3.8-10.6)
[2022-07-29] MEDS ORDERED: DEXTROSE 50% SYRINGE 50 ML IVP ONE (09:18)
[2022-07-29 09:25] LABS: Glucose,Whole Blood 76 mg/dL (70-110)
[2022-07-29] MEDS ORDERED: GLYCOPYRROLATE 0.2 MG/ML 2 ML VIAL ONE (09:29)
[2022-07-29] MEDS ORDERED: PHENYLEPHRINE-0.9% NACL SYG 1,000 MCG/10 ML SYRINGE ONE (09:29)
[2022-07-29] MEDS ORDERED: NEOSTIGMINE 1 MG/ML 10 ML VIAL ONE (09:29)
[2022-07-29] MEDS ORDERED: ROCURONIUM 10 MG/ML (5 ML VIAL) IV ONE (09:29)
[2022-07-29] MEDS ORDERED: PROPOFOL 10 MG/ML 20 ML VIAL IV ONE (09:29)
[2022-07-29] MEDS ORDERED: MIDAZOLAM 2 MG/2 ML VIAL ONE (09:29)
[2022-07-29] MEDS ORDERED: fentaNYL (PF) 50 MCG/ML 2 ML AMP ONE (09:29)
[2022-07-29] MEDS ORDERED: LIDOCAINE 2% INJ 20 MG/ML (2 ML VIAL) ONE (09:29)
[2022-07-29] MEDS ORDERED: SUCCINYLCHOLINE CHLORIDE 200 MG/10 ML VIAL IV ONE (09:29)
[2022-07-29] MEDS ORDERED: BUPIVACAIN-EPI 0.25%-1:200,000 30 ML VIAL SQ ONE ×2 (09:42→10:18)
[2022-07-29 09:52] LABS: Albumin 3.9 g/dL (3.5-5.0); Calcium 9.1 mg/dL (8.4-10.2); Total Bilirubin 0.5 mg/dL (0.2-1.3); Total Protein 6.6 g/dL (6.3-8.2)
[2022-07-29] MEDS ORDERED: LACTATED RINGERS 1,000 ML IV ONE (10:49)
[2022-07-29] MEDS: HYDROmorphone 0.5 MG/0.5 ML SYRINGE IVP PRN ×4 (11:52→13:06)
--- NOTE | 2022-07-29 12:08 | P.OP ---
Date of Procedure: 07/29/22 Description of Procedure: SURGEON: LUIS ALBERTO MANZANARES MD PREOPERATIVE DIAGNOSES: 1. Morbid obesity excess calories, BMI 46.3 2. Acute on chronic renal failure, resolved 3. Acute kidney injury due to dehydration, medications 4. Chronic anemia 5. Elevated LFTs 6. Chronic obstructive pulmonary disease 7. Obstructive sleep apnea 8. Hypothyroidism 9. Gastroesophageal reflux disease 10. Diabetes type 2 with neuropathy complications 11. Diabetes type 2 with nephrology complications, stage III renal disease 12. Dehydration 13. Hypertensive heart disease with congestive heart failure 14. Acute hypotension 15. Hyponatremia 16. Generalized anxiety disorder 17. Depressive disorder 18. Hyperlipidemia 19. Diabetic neuropathy 20. Chronic insulin use POSTOPERATIVE DIAGNOSES: 1. Morbid obesity excess calories, BMI 46.3 2. Acute on chronic renal failure, resolved 3. Acute kidney injury due to dehydration, medications 4. Chronic anemia 5. Elevated LFTs 6. Chronic obstructive pulmonary disease 7. Obstructive sleep apnea 8. Hypothyroidism 9. Gastroesophageal reflux disease 10. Diabetes type 2 with neuropathy complications 11. Diabetes type 2 with nephrology complications, stage III renal disease 12. Dehydration 13. Hypertensive heart disease with congestive heart failure 14. Acute hypotension 15. Hyponatremia 16. Generalized anxiety disorder 17. Depressive disorder 18. Hyperlipidemia 19. Diabetic neuropathy 20. Chronic insulin use 21. Fatty liver disease 22. Peritoneal adhesions, mid to upper abdomen OPERATION: 1. Robotic assisted daVinci Xi laparoscopic sleeve gastrectomy with 40-Slovenian bougie, multiport. 2. Intraoperative esophagogastroduodenoscopy. ANESTHESIA: Gen. local anesthetic ESTIMATED BLOOD LOSS: 5 mL SPECIMENS REMOVED: Sleeve gastrectomy COMPLICATIONS: None. FINDINGS: 1. Negative intraoperative esophagogastrojejunoscopy leak test. 2. No large hiatus hernia. 3. Total of 8 staplers used including 1 - 60 mm black, 1 - 60 mm green, 6 - 60 mm blue robot jayla used to create the gastric sleeve. 4. Sleeve gastrectomy 30 x 6 cm INDICATIONS: Krystian Haddad is a 47-year-old male who comes with morbid obesity. He has completed bariatric risk assessment including dietary surveillance and counseling, medical risk assessment and psychological assessment. He had a recent acute renal failure 1 week ago however was cleared by nephrology to proceed with the surgery. His prior body mass index was over 60. Today he comes in 340 pounds. All surgical options for morbid obesity had been described using the [place] bariatric surgery collaborative comorbidity resolution including complication risk score. A second-generation bariatric consent form was described in detail including the possibility of protein malnutrition, leaks, gastric stricture, venous thrombosis, gastroesophageal reflux disease, need for further surgery for which he demonstrated understanding. Benefits and risks of the procedure were described at length. Informed consent was obtained. DESCRIPTION: The patient was brought into the operating room theater. Preoperatively he had received Lovenox subcutaneously for DVT prophylaxis. Additionally he had Peridex oral solution as an oral decontaminant. After general induction, the abdomen was prepped and draped in standard sterile fashion. An Ioban draping was placed along the abdomen. No aguillon catheter was placed. A robotic [employer] Xi system was prepped and primed. At 15 cm from the xiphoid, proposed port sites were marked with indelible marker along the anterior axillary line bilaterally, mid axillary line bilaterally with each ports were marked 10 to 15 cm from each other. The hotel assistant manager port was marked along the left lateral abdominal wall. The robotic stapler port was marked for the right midclavicular line. A 5 mm 0 degrees laparoscopic trocar entry was performed along the left upper quadrant. The abdomen was insufflated to 15 mmHg pressure he tolerated well. Diagnostic laparoscopy demonstrated no injury to bowel, viscera, or mesentery. The liver surface was remarkable for fatty liver disease. No injury had occurred to the small bowel or viscera. Along the hiatus no recurrent hiatal hernia was found. Additionally, moderate to severe intra-abdominal adhesions of midline and upper abdomen was identified from prior surgery undisturbed. A 8 mm port was placed along the right upper abdominal wall after exchanging the 5 mm port. A separate 8 mm port was placed along the left lateral abdominal wall. Please note that the ports were placed at least 20 cm away from the target anatomy. Care was taken to check each robotic arms were safely away from c ollision with the bed or the patient. At the epigastrium, a medium sized Carolyn liver retractor was placed under direct visualization with the Iron Concentrator Operator placed under the right shoulder of the patient. Next, 12-mm robot stapler port was placed along the right upper quadrant. The camera 8-mm port was maintained along the epigastrium. The patient was repositioned in reverse Trendelenburg position at 21-degrees after lowering the bed. The robot was docked along the left side of the patient. Using a grasper for arm 4, a veseel sealer for arm 3, including grasper for arm 1, the robotic system was docked and primed as described. Instruments were interchanged by the hotel assistant manager for stapler loads. The camera was placed at 30-degrees down. I had sat at the console. The pylorus was identified and 6 cm proximally along the greater curvature of the stomach, the short gastrics were mobilized upwards to the angle of His using a vessel sealer. Hemostasis was excellent during this portion of the procedure. Next, the upper pole of the stomach was adherent to the left lyndsay, which was gently dissected free using atraumatic grasper. The nursing electron tube assembler placed a 40-Slovenian blunted tip bougie into the stomach. Robotic stapler black, green, and blue loads 60 mm x 8 were used to create the sleeve. Total of 8 staplers used including 1 - 60 mm black, 1 - 60 mm green, 6 - 60 mm blue robot jayla used. Initial firing was across the antrum of the stomach towards the angle of His. The staple line was completely hemostatic and linear without corkscrewing. Hemostasis was excellent. The space from the angularis incisura of the sleeve was approximately 4 cm. I then went to the head of the bed to perform the intraoperative esophagogastroduodenoscopy leak test. The upper pole of the stomach was bathed using normal saline solution. The scope was withdrawn with careful inspection along the staple line for which no leaks were found along the entire length. Additionally, the sleeve was completely hemostatic without any encroachment along the angularis incisura. Its topology was a soft "J". No stricture was encountered upon placement of the scope. The GI tract was desufflated. The patient tolerated this portion of the procedure well. The scope was completely withdrawn. The robot was undocked. I then rescrubbed into case, whereby the irrigation fluid was aspirated from the abdominal cavity. Tisseel fibrin sealant was placed along the staple length. Once dried the Carolyn liver retractor was removed. Attention was now brought to removal of the specimen. The distal end of the sleeve gastrectomy specimen was brought out through the 12 mm port at the left upper quadrant. The specimen was gently removed en total, corresponding to 30 cm x 6 cm sleeve gastrectomy specimen. No contamination had occurred during this process. All instruments and pneumoperitoneum including irrigation fluid was removed from the abdominal cavity. The 12 mm port site was irrigated with warm normal saline solution and diluted hydron peroxide. The 12-mm port site was reapproximated using 0 Vicryl and Tyron-Ari of the left upper quadrant. The final incisions were closed using subcuticular interrupted suture of 4-0 Monocryl. Dermabond was applied to the skin once the skin had been cleansed. OptiFoam dressing was placed along the stomach extraction site. At the end of the procedure, needle, sponge, and instrument count was verified correct by the surgical corsetier. The patient was taken to the postanesthesia care unit in stable condition. He had tolerated the procedure well. Intraoperative films and findings were reviewed with the patient's family.
[2022-07-29] MEDS ORDERED: NALOXONE 0.4 MG/ML 1 ML VIAL IV PRN ×2 (12:15→12:18)
[2022-07-29] MEDS ORDERED: HYDROmorphone 1 MG/ML 1 ML SYRINGE IVP PRN (12:16)
[2022-07-29 12:44] LABS: Glucose,Whole Blood 102 mg/dL (70-110)
[2022-07-29] MEDS: SODIUM CHLORIDE 0.9% 1,000 ML IV SCH ×2 (14:37→20:43)
[2022-07-29] MEDS: SIMETHICONE 40 MG/0.6 ML DROPS 2,000 MG/30 ML BOTTLE PO SCH ×3 (14:37→20:46)
[2022-07-29] MEDS: fentaNYL PCA 500 MCG/50 ML BAG IV SCH (14:50)
[2022-07-29] MEDS: ALBUTEROL NEBULIZED 2.5 MG/3 ML INHALATION SCH ×2 (17:02→20:45)
[2022-07-29] MEDS: metFORMIN 500 MG TAB PO SCH (17:08)
[2022-07-29] MEDS: ACETAMINOPHEN IV (For NPO) 1,000 MG in EMPTY BAG 1 BAG IVPB SCH ×2 (17:08→23:42)
[2022-07-29] MEDS: ceFAZolin 3 GM in SODIUM CHLORIDE 0.9% 100 ML IVPB SCH (17:08)
[2022-07-29] MEDS: ONDANSETRON 4 MG/2 ML VIAL IVP SCH ×2 (17:09→23:43)
[2022-07-29] MEDS: DEXAMETHASONE SOD PHOSPHATE 4 MG/ML 1 ML VIAL IVP SCH ×2 (17:09→23:42)
[2022-07-29 20:19] LABS: Glucose,Whole Blood 89 mg/dL (70-110)
[2022-07-29] MEDS: PANTOPRAZOLE 40 MG/10 ML VIAL IVP SCH (20:43)
[2022-07-29] MEDS: GABAPENTIN 400 MG CAP PO SCH (20:43)
[2022-07-29] MEDS ORDERED: INSULIN DETEMIR (LEVEMIR) 100 UNIT/ML SYR SQ SCH (21:00)
[2022-07-30] MEDS: ceFAZolin 3 GM in SODIUM CHLORIDE 0.9% 100 ML IVPB SCH ×2 (00:15→09:10)
[2022-07-30] MEDS: SODIUM CHLORIDE 0.9% 1,000 ML IV SCH ×3 (04:00→17:05)
[2022-07-30 06:02] LABS: Glucose,Whole Blood 101 mg/dL (70-110)
[2022-07-30] MEDS: ONDANSETRON 4 MG/2 ML VIAL IVP SCH ×2 (06:09→12:40)
[2022-07-30] MEDS: ACETAMINOPHEN IV (For NPO) 1,000 MG in EMPTY BAG 1 BAG IVPB SCH ×2 (06:09→12:39)
[2022-07-30] MEDS: DEXAMETHASONE SOD PHOSPHATE 4 MG/ML 1 ML VIAL IVP SCH ×2 (06:10→12:40)
[2022-07-30] MEDS: LACTATED RINGERS 1,000 ML IV SCH (06:16)
[2022-07-30] MEDS ORDERED: LEVOTHYROXINE 88 MCG TAB PO SCH (06:30)
[2022-07-30] MEDS ORDERED: TAMSULOSIN 0.4 MG CAP.ER.24H PO SCH (08:30)
[2022-07-30] MEDS ORDERED: FLUoxetine HCL 20 MG CAP PO SCH (09:00)
[2022-07-30] MEDS ORDERED: ISOSORBIDE MONONITRATE ER 30 MG TAB.ER.24H PO SCH (09:00)
[2022-07-30] MEDS: metFORMIN 500 MG TAB PO SCH (09:10)
[2022-07-30] MEDS: GABAPENTIN 400 MG CAP PO SCH (09:10)
[2022-07-30] MEDS: SIMETHICONE 40 MG/0.6 ML DROPS 2,000 MG/30 ML BOTTLE PO SCH ×2 (09:11→12:40)
[2022-07-30] MEDS: PANTOPRAZOLE 40 MG/10 ML VIAL IVP SCH (09:11)
--- NOTE | 2022-07-30 09:15 | FL ---
EXAMINATION TYPE: FL UGI DATE OF EXAM: 07/30/2022 CLINICAL HISTORY: Status post gastric sleeve Contrast: Omnipaque 350 50 mL.FLuoro time- 31 seconds. Dap 1634.19. The patient ingested contrast without difficulty or delay. Noted are postsurgical changes of gastric sleeve. There is no evidence for leak or obstruction. Contrast is noted within the duodenum. IMPRESSION: Post-surgical change of gastric sleeve without evidence for obstruction or leak at this point in time.
[2022-07-30] MEDS: ALBUTEROL NEBULIZED 2.5 MG/3 ML INHALATION SCH ×3 (09:36→17:06)
[2022-07-30 10:59] LABS: Basophils # (A) 0.01 X 10*3/uL (0.00-0.10); Basophils % (A) 0.2 %; Eosinophils # (A) 0 X 10*3/uL (0.04-0.35); Eosinophils % (A) 0 %; HCT 30.6 % (39.6-50.0); HGB 9.8 g/dL (13.0-17.0); Immature Grans, Automated 0.6 %; Lymphocytes % (A) 7.6 %; MCH 29.6 pg (27.0-32.0); MCV 92.4 fL (80.0-97.0); Mean Platelet Volume 9.2 fL (9.5-12.2); Monocytes # (A) 0.18 X 10*3/uL (0.20-1.00); Monocytes % (A) 2.7 %; NRBC Per 100 WBC 0 /100 WBCS (0.0-0.0); Neutrophils # (A) 5.87 X 10*3/uL (1.80-7.70); Neutrophils % (A) 88.9 %; Platelet Count 212 X 10*3/uL (140-440); RBC 3.31 X 10*6/uL (4.40-5.60); RDW 12.7 % (11.5-14.5)
[2022-07-30 11:32] LABS: Glucose,Whole Blood 135 mg/dL (70-110)
[2022-07-30 12:14] LABS: Magnesium 1.8 mg/dL (1.5-2.4)
[2022-07-30 13:42] VITALS: BMI 46.0
[2022-07-30 13:46] LABS: African American GFR (CKD) 59.6 (60.0-200.0); Anion Gap 14.3 mmol/L (10.00-18.00); Blood Urea Nitrogen 16.7 mg/dL (9.0-27.0); Calcium 8.7 mg/dL (8.7-10.3); Carbon Dioxide 18.2 mmol/L (20.0-27.5); Non-African American GFR(CKD) 51.4 (60.0-200.0); Phosphorus 3.1 mg/dL (2.4-5.1)
[2022-07-30 14:48] VITALS: BP 146/67; PULSE 102; RESP 19; TEMP 98.4
--- NOTE | 2022-07-30 15:02 | P.DS ---
Providers Date of admission: 07/29/22 08:10 Expected date of discharge: 07/30/22 Attending physician: Adela Blanc Primary care physician: Krystian Tej [facility] Hospital Course: Discharge diagnosis 1. Morbid obesity excess calories, BMI 46.3 2. Acute on chronic renal failure, resolved 3. Acute kidney injury due to dehydration, medications 4. Chronic anemia 5. Elevated LFTs 6. Chronic obstructive pulmonary disease 7. Obstructive sleep apnea 8. Hypothyroidism 9. Gastroesophageal reflux disease 10. Diabetes type 2 with neuropathy complications 11. Diabetes type 2 with nephrology complications, stage III renal disease 12. Dehydration 13. Hypertensive heart disease with congestive heart failure 14. Acute hypotension 15. Hyponatremia 16. Generalized anxiety disorder 17. Depressive disorder 18. Hyperlipidemia 19. Diabetic neuropathy 20. Chronic insulin use 21. Fatty liver disease 22. Peritoneal adhesions, mid to upper abdomen Hospital course Krystian Haddad is a 47-year-old male who comes with morbid obesity. Patient is status post Robotic assisted daVinci Xi laparoscopic sleeve gastrectomy. Patient's upper GI shows no evidence of leak or obstruction. He is tolerating diet. He has been up and ambulating. He is afebrile. He is urinating without difficulty. No flatus. He is stable for discharge. Physician [employer] note has been reviewed by physician. Signing provider agrees with the documented findings, assessment, and plan of care. Patient Condition at Discharge: Stable Plan - Discharge Summary Discharge Rx Participant: No New Discharge Prescriptions: Continue Isosorbide Mononitrate ER [Imdur] 30 mg PO QAM Fenofibrate Nanocrystallized [Fenofibrate] 145 mg PO DAILY Sildenafil Citrate [Viagra] 100 mg PO DAILY PRN PRN Reason: E.D. metFORMIN HCL [Glucophage] 1,000 mg PO BID-W/MEALS Levothyroxine Sodium [Synthroid] 175 mcg PO QAM FLUoxetine HCL [PROzac] 20 mg PO QAM Butalb/Acetaminophen/Caffeine [Fioricet 50-300-40 mg Capsule] 1 cap PO BID PRN PRN Reason: Migraine Headache Tamsulosin [Flomax] 0.4 mg PO PC-BRKFST #30 cap Gabapentin [Neurontin] 400 mg PO BID Discontinued Insulin Glargine [Lantus Vial] 45 unit SQ HS Omeprazole 20 mg PO BID Acetaminophen Tab [Tylenol] 650 mg PO Q6HR PRN tab PRN Reason: Mild Pain Or Fever > 100.5 No Action Atorvastatin Calcium [Lipitor] 20 mg PO DAILY Discharge Medication List Isosorbide Mononitrate ER [Imdur] 30 mg PO QAM 11/16/14 [History] Fenofibrate Nanocrystallized [Fenofibrate] 145 mg PO DAILY 08/08/15 [History] Atorvastatin Calcium [Lipitor] 20 mg PO DAILY 11/08/19 [History] Levothyroxine Sodium [Synthroid] 175 mcg PO QAM 11/08/19 [History] Sildenafil Citrate [Viagra] 100 mg PO DAILY PRN 11/08/19 [History] metFORMIN HCL [Glucophage] 1,000 mg PO BID-W/MEALS 11/08/19 [History] Butalb/Acetaminophen/Caffeine [Fioricet 50-300-40 mg Capsule] 1 cap PO BID PRN 04/06/20 [History] FLUoxetine HCL [PROzac] 20 mg PO QAM 04/06/20 [History] Tamsulosin [Flomax] 0.4 mg PO PC-BRKFST #30 cap 07/23/22 [Rx] Gabapentin [Neurontin] 400 mg PO BID 07/24/22 [History] Follow up Appointment(s)/Referral(s): [place], [place] [NON-STAFF] - 08/02/22 9:00 am Patient Instructions/Handouts: Nutrition after Bariatric Surgery (DC), Nutrition after Bariatric Surgery (GEN), Laparoscopic Sleeve Gastrectomy (DC), Laparoscopic Sleeve Gastrectomy (GEN) Activity/Diet/Wound Care/Special Instructions: Liquid diet only for 2 weeks No lifting over 4 pounds in 4 weeks May Shower. No soaking in bath tubs for 2 weeks Please notify your surgeon if you develop nausea and vomiting including new onset of abdominal pain. Continue to use incentive spirometry to prevent pneumonias. Please continue to ambulate at home to prevent blood clots in legs. Follow-up at the bariatric center. May shower. Dressings to be discontinued by surgeon in the office. Drink 64 oz of fluid daily. Start protein shakes on . Notify bariatric center for temp over 101.0, increased pain, drainage from incisions. No straws or carbonated beverages. Liquid diet only. Sugar content should be less than 6 g to avoid dumping syndrome. Take MOM for constipation. CRUSH, OPEN, OR CUT TABLETS LARGER THAN A SIZE OF A TIC TAC Do not take Lipitor until seen by surgeon do to increase bleeding risk with this medication Discharge Disposition: HOME SELF-CARE
[2022-07-30] MEDS: fentaNYL PCA 500 MCG/50 ML BAG IV SCH (17:05)
== END 2022-07-30 16:55 | disposition home or self-care (01) | DRG 620 ==
LOC: 2ORMAIN 08:10 → 4SSUR 13:04
PROVIDERS: ADMIT Surgery Plastic and Reconstructive Surgery; ATTEND Surgery Plastic and Reconstructive Surgery
PROC: 8E0W4CZ Robotic Assisted Procedure of Trunk Region, Percutaneous Endoscopic Approach (ICD-10-PCS; 2022-07-29)
PROC: 0DB64Z3 Excision of Stomach, Percutaneous Endoscopic Approach, Vertical (ICD-10-PCS; principal; 2022-07-29 10:00)
DX: E66.01 Morbid (severe) obesity due to excess calories (principal); E87.1 Hypo-osmolality and hyponatremia; N17.9 Acute kidney failure, unspecified; I13.0 Hypertensive heart and chronic kidney disease with heart failure and stage 1 through stage 4 chronic kidney disease, or unspecified chronic kidney disease; D63.1 Anemia in chronic kidney disease; E11.40 Type 2 diabetes mellitus with diabetic neuropathy, unspecified; I95.9 Hypotension, unspecified; K76.0 Fatty (change of) liver, not elsewhere classified; E11.22 Type 2 diabetes mellitus with diabetic chronic kidney disease; I50.9 Heart failure, unspecified; F32.A Depression, unspecified; E03.9 Hypothyroidism, unspecified; Z68.42 Body mass index [BMI] 45.0-49.9, adult; J44.9 Chronic obstructive pulmonary disease, unspecified; N18.30 Chronic kidney disease, stage 3 unspecified; E86.0 Dehydration; E78.5 Hyperlipidemia, unspecified; G47.33 Obstructive sleep apnea (adult) (pediatric); K21.9 Gastro-esophageal reflux disease without esophagitis; I25.5 Ischemic cardiomyopathy; F41.1 Generalized anxiety disorder; R79.89 Other specified abnormal findings of blood chemistry; K66.0 Peritoneal adhesions (postprocedural) (postinfection); Z87.891 Personal history of nicotine dependence; Z83.3 Family history of diabetes mellitus; Z86.718 Personal history of other venous thrombosis and embolism; Z87.11 Personal history of peptic ulcer disease; Z89.022 Acquired absence of left finger(s); Z79.890 Hormone replacement therapy; Z79.4 Long term (current) use of insulin; Z79.84 Long term (current) use of oral hypoglycemic drugs; Z79.899 Other long term (current) drug therapy
CPT/HCPCS: 74240; 80051; 80053; 82310; 82565; 83735; 84100; 84520; 85025; 88307; 94640; 94760

== ENCOUNTER → 2022-08-02 | Outpatient (CLI) | payer MEDICARE ==
--- NOTE | 2022-08-02 10:23 | P.BASOAP ---
Subjective Progress Note Date: 08/02/22 DATE OF CONSULTATION: 08/02/2022 CHIEF COMPLAINT: Status post sleeve gastrectomy HISTORY OF PRESENT ILLNESS: Krystian Haddad is very pleasant 47-year-old gentleman status post sleeve gastrectomy, 07/29/22. He is post op day 4. He has pre-existing renal disease with recent acute on chronic kidney failure. He denies abdominal pain. No nausea or vomiting. No abdominal pain. No fevers or chills. He is ambulating with his unna boot and cane. He is no longer on his hypertension medications and no longer requiring insulin. At height of 5 feet 9 inches, ideal body weight is 188 pounds. Highest weight is 367 pounds, body mass index 54.3. He comes in 320 pounds from 332 pounds, 8 years ago. He has lost 12 pounds in 8 years. His body mass index is 47.3. He is 152 pounds overweight. Lifetime weight loss of 47 pounds. Lifetime percent excess weight loss of 24%. PHYSICAL EXAM: VITAL SIGNS: 5 foot 9, 320 pounds. Body mass index 47.3. Vital Signs Temp 98.2 F 08/02/22 11:01 Pulse 96 08/02/22 11:01 Resp 13 08/02/22 11:01 BP 146/76 08/02/22 11:01 Pulse Ox FiO2 GENERAL: Well-developed male in no acute distress. HEENT: No sclerae icterus. Extraocular movements grossly intact. Moist buccal mucosa. NECK: Supple without lymphadenopathy. CHEST: Nonlabored respirations. CARDIOVASCULAR: Distal 2+ pulses. ABDOMEN: Incisions clean, dry and intact. No infection. Dressing removed. Large pannus over 30+ pounds. MUSCULOSKELETAL: No clubbing, cyanosis. Has leg cast. NEURO: No focal or lateralizing signs. PSYCH: Appropriate affect. Alert and oriented to person, place and time. SKIN: Well perfused. LABS: Reviewed. ASSESSMENT: 1. Morbid obesity due to excess caloric intake. 2. Body mass index of 54.3 now 47.3 3. Insulin-dependent diabetes. 4. Hypertensive heart disease with cardiomyopathy. 5. Congestive heart failure with known diastolic dysfunction. 6. Hypertriglyceridemia. 7. Vitamin D deficiency. 8. Hypothyroidism. 9. Elevated ALT. 10. Osteoarthritis of the bilateral hips. 11. Osteoarthritis of the bilateral knees secondary to morbid obesity. 12. Osteoarthritis of bilateral ankles. 13. Osteoarthritis of the lower back. 14. Obstructive sleep apnea. 15. Irritable bowel syndrome. 16. History of incarcerated ventral hernia status post repair. 17. Diabetic nephropathy with stage 3 kidney disease. 18. Recent acute kidney injury with acute kidney failure PLAN: 1. Repeat blood work in 48 hours described at local institution including IV fluids advised due to poor oral intake. 2. Follow-up one week. 3. Close follow-up described. 4. Adjustment to protein shake out of 1-2 daily to avoid acute kidney failure. 5. Discontinue insulin. 5. Discontinue antihypertensive due to hypotension. Assessment/Plan Plan: Date: Initial Weight: 166.831 kg Initial BMI: Current Weight: Current BMI: Type of Surgery: Total Volume in Band: Previous Volume: Volume Removed: Volume Added: Band Size:
[2022-08-02 11:10] VITALS: BP 146/76; PULSE 96; RESP 13; TEMP 98.2
== END ==
LOC: BARWHC3 08:44
PROVIDERS: ATTEND Surgery Plastic and Reconstructive Surgery
DX: E66.01 Morbid (severe) obesity due to excess calories (principal); Z68.42 Body mass index [BMI] 45.0-49.9, adult; I50.9 Heart failure, unspecified; E55.9 Vitamin D deficiency, unspecified; E03.9 Hypothyroidism, unspecified; R74.01 Elevation of levels of liver transaminase levels; N18.30 Chronic kidney disease, stage 3 unspecified; M19.071 Primary osteoarthritis, right ankle and foot; E78.1 Pure hyperglyceridemia; I13.0 Hypertensive heart and chronic kidney disease with heart failure and stage 1 through stage 4 chronic kidney disease, or unspecified chronic kidney disease; M16.0 Bilateral primary osteoarthritis of hip; M17.0 Bilateral primary osteoarthritis of knee; M19.072 Primary osteoarthritis, left ankle and foot; K58.8 Other irritable bowel syndrome; E11.22 Type 2 diabetes mellitus with diabetic chronic kidney disease; Z98.84 Bariatric surgery status; E11.21 Type 2 diabetes mellitus with diabetic nephropathy; Z79.4 Long term (current) use of insulin; Z98.890 Other specified postprocedural states; Z79.890 Hormone replacement therapy
CPT/HCPCS: 99211

== ENCOUNTER → 2022-08-07 | Outpatient (CLI) | payer MEDICARE ==
[2022-08-07 14:31] VITALS: BP 117/78; PULSE 99; TEMP 97.9; BMI 45.9
--- NOTE | 2022-08-07 14:52 | P.BASOAP ---
Subjective Progress Note Date: 08/07/22 He is off insulin, no futher kidney failure. Medical reconciliation. He is off insulin. Took off blood pressure medications. Food options reviewed. Kidney failure averted. Objective - Vital Signs Vital signs: Vital Signs Temp 97.9 F 08/07/22 14:24 Pulse 99 08/07/22 14:24 Resp BP 117/78 08/07/22 14:24 Pulse Ox FiO2 Intake & Output 08/06/22 08/07/22 08/07/22 18:59 06:59 18:59 Weight 141.067 kg Assessment/Plan Plan: Date: 08/07/22 Initial Weight: 166.831 kg Initial BMI: 54.3 Current Weight: 141.067 kg Current BMI: 45.9 Type of Surgery: Total Volume in Band: Previous Volume: Volume Removed: Volume Added: Band Size:
== END ==
LOC: BARWHC3 14:00
PROVIDERS: ATTEND Surgery Plastic and Reconstructive Surgery
DX: E66.01 Morbid (severe) obesity due to excess calories (principal); Z68.42 Body mass index [BMI] 45.0-49.9, adult
CPT/HCPCS: 97802; G0463; 99211

== ENCOUNTER → 2022-08-28 | Outpatient (CLI) | payer MEDICARE ==
[2022-08-28 13:18] VITALS: BP 142/82; PULSE 79; RESP 12; TEMP 97.9; BMI 43.4
--- NOTE | 2022-08-28 14:20 | P.BASOAP ---
Subjective Progress Note Date: 08/28/22 He is doing well. He has lost 60 pounds. Ok to eat ground diet. Ok to start activities. Needs labs. Objective - Vital Signs Vital signs: Vital Signs Temp 97.9 F 08/28/22 13:09 Pulse 79 08/28/22 13:09 Resp 12 08/28/22 13:09 BP 142/82 08/28/22 13:09 Pulse Ox FiO2 Intake & Output 08/27/22 08/28/22 08/28/22 18:59 06:59 18:59 Weight 133.492 kg Assessment/Plan Plan: Date: 08/28/22 Initial Weight: 166.831 kg Initial BMI: 54.3 Current Weight: 133.492 kg Current BMI: 43.4 Type of Surgery: Total Volume in Band: Previous Volume: Volume Removed: Volume Added: Band Size:
== END ==
LOC: BARWHC3 11:51
PROVIDERS: ATTEND Surgery Plastic and Reconstructive Surgery
DX: E66.01 Morbid (severe) obesity due to excess calories (principal); Z68.41 Body mass index [BMI] 40.0-44.9, adult
CPT/HCPCS: 97803; G0463; 99211

== ENCOUNTER → 2022-08-28 | Outpatient (CLI) | payer MEDICARE ==
[2022-08-28 12:57] LABS: Partial Thromboplastin Time 23.4 sec (22.0-30.0); Prothrombin Time 10.5 sec (9.0-12.0)
[2022-08-28 15:22] LABS: HGB 16.2 g/dL (13.0-17.0); MCH 29.7 pg (27.0-32.0); MCHC 33.8 g/dL (32.0-37.0); MCV 87.9 fL (80.0-97.0); Mean Platelet Volume 9.8 fL (9.5-12.2); NRBC Per 100 WBC 0 /100 WBCS (0.0-0.0); Platelet Count 176 X 10*3/uL (140-440); RBC 5.46 X 10*6/uL (4.40-5.60); RDW 13.5 % (11.5-14.5)
[2022-08-28 16:19] LABS: % Iron Saturation 20.88 (15.00-50.00); Albumin 3.9 g/dL (3.8-4.9); Albumin/Globulin Ratio 1.72 (1.60-3.17); Anion Gap 13.3 mmol/L (10.00-18.00); BUN/Creat Ratio 10.38 Ratio (12.00-20.00); Calcium 9.2 mg/dL (8.7-10.3); Carbon Dioxide 20.8 mmol/L (20.0-27.5); Globulin 2.2 g/dL (1.6-3.3); Potassium 4.1 mmol/L (3.5-5.5); Prealbumin 18.3 mg/dL (18.0-42.0); Total Bilirubin 0.8 mg/dL (0.30-1.20); Total Protein 6.1 g/dL (6.2-8.2)
[2022-08-29 02:50] LABS: LDL Cholesterol,Calculated 76.4 mg/dL (0.0-131.0); Magnesium 1.7 mg/dL (1.5-2.4); Phosphorus 3.4 mg/dL (2.4-5.1)
[2022-08-29 09:37] LABS: Zinc, Serum 72 ug/dL (60-130)
[2022-08-30 05:09] LABS: Vitamin A 65 ug/dL (38-106)
[2022-08-30 07:22] LABS: Vit B1(Thiamine) 52 ug/L (38-122)
== END | disposition home or self-care (01) ==
LOC: LABWHC1 10:53
PROVIDERS: ATTEND Surgery Plastic and Reconstructive Surgery
DX: E66.01 Morbid (severe) obesity due to excess calories (principal); E89.1 Postprocedural hypoinsulinemia; D50.8 Other iron deficiency anemias; E44.0 Moderate protein-calorie malnutrition; E44.1 Mild protein-calorie malnutrition; E45 Retarded development following protein-calorie malnutrition; E46 Unspecified protein-calorie malnutrition; E55.9 Vitamin D deficiency, unspecified; K74.1 Hepatic sclerosis; N19 Unspecified kidney failure; T56.894A Toxic effect of other metals, undetermined, initial encounter; K50.90 Crohn's disease, unspecified, without complications
CPT/HCPCS: 36415; 80053; 80061; 82306; 82525; 82607; 82728; 82746; 83036; 83540; 83550; 83735; 83970; 84100; 84134; 84255; 84425; 84443; 84590; 84630; 85027; 85610; 85730

== ENCOUNTER → 2022-12-02 | Outpatient (CLI) | payer MEDICARE ==
[2022-12-02 15:13] LABS: INR 0.9 (<1.2); Partial Thromboplastin Time 24.2 sec (22.0-30.0)
[2022-12-02 19:51] LABS: Prealbumin 24.2 mg/dL (18.0-42.0)
[2022-12-02 20:56] LABS: HCT 39.8 % (39.6-50.0); HGB 13.3 d/dL (13.0-17.0); MCH 30.4 pg (27.0-32.0); MCHC 33.4 d/dL (32.0-37.0); MCV 91.1 FL (80.0-97.0); Mean Platelet Volume 10.5 FL (9.5-12.2); NRBC Per 100 WBC 0 X 10*3/uL (0.00-0.01); Platelet Count 199 X 10*3/uL (140-440); RBC 4.37 X 10*6/uL (4.40-5.60); RDW 13.5 % (11.5-14.5); WBC 6.23 X 10*3/uL (4.50-10.00)
[2022-12-02 21:04] LABS: % Iron Saturation 21.47 (15.00-50.00); ALT 45 U/L (10-49); AST 31 U/L (14-35); Albumin 4.7 d/dL (3.8-4.9); Albumin/Globulin Ratio 2.14 Ratio (1.60-3.17); Alkaline Phosphatase 83 U/L (41-126); BUN/Creat Ratio 22.73 Ratio (12.00-20.00); Calcium 9.7 mg/dL (8.7-10.3); Carbon Dioxide 22.9 mmol/L (21.6-31.8); Chloride 102 mmol/L (96-109); Globulin 2.2 d/dL (1.6-3.3); Glucose 96 mg/dL (70-110); Iron 67 UG/DL (65-175); LDL Cholesterol,Calculated 77.1 mg/dL (0.0-131.0); Phosphorus 3.2 mg/dL (2.4-5.1); Potassium 4.2 mmol/L (3.5-5.5); Sodium 140 mmol/L (135-145); Total Bilirubin 0.6 mg/dL (0.3-1.2); Total Iron Binding Capacity 312 UG/DL (228-460); Total Protein 6.9 d/dL (6.2-8.2)
[2022-12-03 13:36] LABS: Zinc, Serum 52 ug/dL (60-130)
[2022-12-04 06:23] LABS: Vit B1(Thiamine) 44 ug/L (38-122)
== END | disposition home or self-care (01) ==
LOC: LABWHC1 13:44
PROVIDERS: ATTEND Surgery Plastic and Reconstructive Surgery
DX: E66.01 Morbid (severe) obesity due to excess calories (principal); D50.8 Other iron deficiency anemias; D50.9 Iron deficiency anemia, unspecified; K91.2 Postsurgical malabsorption, not elsewhere classified; E44.0 Moderate protein-calorie malnutrition; E44.1 Mild protein-calorie malnutrition; E42 Marasmic kwashiorkor; E46 Unspecified protein-calorie malnutrition; E55.9 Vitamin D deficiency, unspecified; K74.1 Hepatic sclerosis; N19 Unspecified kidney failure; T56.894A Toxic effect of other metals, undetermined, initial encounter
CPT/HCPCS: 36415; 80053; 80061; 82306; 82525; 82607; 82728; 82746; 83036; 83540; 83550; 83735; 83970; 84100; 84134; 84255; 84425; 84443; 84590; 84630; 85027; 85610; 85730

== ENCOUNTER → 2023-02-05 | Outpatient (CLI) | payer MEDICARE ==
[2023-02-05 18:48] LABS: Prealbumin 22.7 mg/dL (18.0-42.0)
[2023-02-05 19:08] LABS: % Iron Saturation 17.36 (15.00-50.00); ALT 68 U/L (10-49); AST 35 U/L (14-35); Albumin 4.2 d/dL (3.8-4.9); Albumin/Globulin Ratio 1.91 Ratio (1.60-3.17); Alkaline Phosphatase 81 U/L (41-126); Blood Urea Nitrogen 29.9 mg/dL (9.0-27.0); Calcium 9.5 mg/dL (8.7-10.3); Carbon Dioxide 22.1 mmol/L (21.6-31.8); Chloride 103 mmol/L (96-109); Chol/HDL Ratio 2.83 Ratio; Globulin 2.2 d/dL (1.6-3.3); Glucose 93 mg/dL (70-110); Iron 50 UG/DL (65-175); LDL Cholesterol,Calculated 59.7 mg/dL (0.0-131.0); Magnesium 1.9 mg/dL (1.5-2.4); Phosphorus 3.2 mg/dL (2.4-5.1); Potassium 4.5 mmol/L (3.5-5.5); Sodium 139 mmol/L (135-145); Total Bilirubin 0.5 mg/dL (0.3-1.2); Total Iron Binding Capacity 288 UG/DL (228-460); Total Protein 6.4 d/dL (6.2-8.2); VLDL Calculation 19.86 mg/dL (5.00-40.00)
[2023-02-05 22:04] LABS: HCT 37.5 % (39.6-50.0); HGB 12.7 d/dL (13.0-17.0); MCH 31.5 pg (27.0-32.0); MCHC 33.9 d/dL (32.0-37.0); MCV 93.1 FL (80.0-97.0); Mean Platelet Volume 10.7 FL (9.5-12.2); NRBC Per 100 WBC 0 X 10*3/uL (0.00-0.01); Platelet Count 153 X 10*3/uL (140-440); RBC 4.03 X 10*6/uL (4.40-5.60); RDW 13.2 % (11.5-14.5); WBC 6.11 X 10*3/uL (4.50-10.00)
[2023-02-06 13:39] LABS: Zinc, Serum 74 ug/dL (60-130)
== END | disposition home or self-care (01) ==
LOC: LABWHC1 12:40
PROVIDERS: ATTEND Surgery Plastic and Reconstructive Surgery
DX: E66.01 Morbid (severe) obesity due to excess calories (principal); E89.1 Postprocedural hypoinsulinemia; D50.8 Other iron deficiency anemias; K91.2 Postsurgical malabsorption, not elsewhere classified; E44.0 Moderate protein-calorie malnutrition; E44.1 Mild protein-calorie malnutrition; E45 Retarded development following protein-calorie malnutrition; E46 Unspecified protein-calorie malnutrition; E55.9 Vitamin D deficiency, unspecified; K74.1 Hepatic sclerosis; N19 Unspecified kidney failure; T56.894A Toxic effect of other metals, undetermined, initial encounter; K50.90 Crohn's disease, unspecified, without complications
CPT/HCPCS: 36415; 80053; 80061; 82306; 82525; 82607; 82728; 82746; 83036; 83540; 83550; 83735; 83970; 84100; 84134; 84255; 84425; 84443; 84590; 84630; 85027

== ENCOUNTER → 2023-02-12 | Outpatient (CLI) | payer MEDICARE ==
[2023-02-12 16:41] LABS: Partial Thromboplastin Time 26.7 sec (22.0-30.0); Prothrombin Time 10.9 sec (10.0-12.5)
== END | disposition home or self-care (01) ==
LOC: LABWHC1 14:51
PROVIDERS: ATTEND Surgery Plastic and Reconstructive Surgery
DX: K90.89 Other intestinal malabsorption (principal); E66.01 Morbid (severe) obesity due to excess calories
CPT/HCPCS: 36415; 85610; 85730

== ENCOUNTER → 2023-05-14 | Outpatient (CLI) | payer MEDICARE ==
[2023-05-14 13:14] VITALS: BP 111/75; PULSE 75; RESP 16; TEMP 97.8; BMI 30.8
--- NOTE | 2023-05-14 13:43 | P.BASOAP ---
Subjective Progress Note Date: 05/14/23 He has large pannus. No longer eats bread. He can tolerate chicken not ground beef. He had brittani roast. He is eating 75 grams. Needs labs. He has lost almost 300 pounds. He is 10 months out. He is going to the gym regularly. Feet is smaller. Fantastic and doing well. He has panniculitis and saw the uppers edge burnisher Rocco. Needs skin removal surgery. Highest 596 pounds. Objective - Vital Signs Vital signs: Vital Signs Temp 97.8 F 05/14/23 12:48 Pulse 75 05/14/23 12:48 Resp 16 05/14/23 12:48 BP 111/75 05/14/23 12:48 Pulse Ox FiO2 Intake & Output 05/13/23 05/14/23 05/14/23 18:59 06:59 18:59 Weight 94.801 kg Assessment/Plan Plan: Date: 05/14/23 Initial Weight: 166.831 kg Initial BMI: 54.3 Current Weight: 94.801 kg Current BMI: 30.8 Type of Surgery: Vertical Sleeve Gastrectomy Total Volume in Band: Previous Volume: Volume Removed: Volume Added: Band Size:
== END ==
LOC: BARWHC3 12:30
PROVIDERS: ATTEND Surgery Plastic and Reconstructive Surgery
DX: E66.01 Morbid (severe) obesity due to excess calories (principal)
CPT/HCPCS: 97803; G0463; 99211

== ENCOUNTER → 2023-05-14 | Outpatient (CLI) | payer MEDICARE ==
[2023-05-14 10:26] LABS: Partial Thromboplastin Time 24.7 sec (22.0-30.0); Prothrombin Time 10.8 sec (10.0-12.5)
[2023-05-14 15:20] LABS: HCT 36.1 % (39.6-50.0); HGB 12.6 g/dL (13.0-17.0); MCH 30.9 pg (27.0-32.0); MCHC 34.9 g/dL (32.0-37.0); MCV 88.5 FL (80.0-97.0); Mean Platelet Volume 9.7 FL (9.5-12.2); NRBC Per 100 WBC 0 X 10*3/uL (0.00-0.01); Platelet Count 155 X 10*3/uL (140-440); RBC 4.08 X 10*6/uL (4.40-5.60); RDW 12.6 % (11.5-14.5); WBC 4.76 X 10*3/uL (4.50-10.00)
[2023-05-14 16:16] LABS: Prealbumin 20.9 mg/dL (18.0-42.0)
[2023-05-14 16:31] LABS: % Iron Saturation 30.31 (15.00-50.00); ALT 87 U/L (10-49); AST 73 U/L (14-35); Albumin 4.4 g/dL (3.8-4.9); Albumin/Globulin Ratio 1.83 Ratio (1.60-3.17); Alkaline Phosphatase 69 U/L (41-126); Blood Urea Nitrogen 33.2 mg/dL (9.0-27.0); Calcium 9.6 mg/dL (8.7-10.3); Carbon Dioxide 22.9 mmol/L (21.6-31.8); Chloride 106 mmol/L (96-109); Chol/HDL Ratio 2.33 Ratio; Globulin 2.4 g/dL (1.6-3.3); Glucose 98 mg/dL (70-110); Iron 87 UG/DL (65-175); LDL Cholesterol,Calculated 54.1 mg/dL (0.0-131.0); Magnesium 1.8 mg/dL (1.5-2.4); Phosphorus 3.4 mg/dL (2.4-5.1); Sodium 141 mmol/L (135-145); Total Bilirubin 0.5 mg/dL (0.3-1.2); Total Iron Binding Capacity 287 UG/DL (228-460); Total Protein 6.8 g/dL (6.2-8.2); VLDL Calculation 14.28 mg/dL (5.00-40.00)
[2023-05-15 13:06] LABS: Zinc, Serum 53 ug/dL (60-130)
[2023-05-16 06:45] LABS: Vitamin A 68 ug/dL (38-106)
== END | disposition home or self-care (01) ==
LOC: LABWHC1 09:16
PROVIDERS: ATTEND Surgery Plastic and Reconstructive Surgery
DX: D50.8 Other iron deficiency anemias (principal); E89.1 Postprocedural hypoinsulinemia; E44.0 Moderate protein-calorie malnutrition; E55.9 Vitamin D deficiency, unspecified; K74.1 Hepatic sclerosis; E66.01 Morbid (severe) obesity due to excess calories; K91.2 Postsurgical malabsorption, not elsewhere classified; E44.1 Mild protein-calorie malnutrition; E45 Retarded development following protein-calorie malnutrition; T56.894A Toxic effect of other metals, undetermined, initial encounter; N19 Unspecified kidney failure; K50.90 Crohn's disease, unspecified, without complications
CPT/HCPCS: 36415; 80053; 80061; 82306; 82525; 82607; 82728; 82746; 83036; 83540; 83550; 83735; 83970; 84100; 84134; 84255; 84425; 84443; 84590; 84630; 85027; 85610; 85730

== ENCOUNTER → 2023-05-29 | Outpatient (CLI) | payer MEDICARE ==
--- NOTE | 2023-05-30 08:03 | NM ---
EXAMINATION TYPE: NM hepatobiliary w EF DATE OF EXAM: 05/29/2023 2:49 PM COMPARISON: None CLINICAL INDICATION:Male, 48 years old with history of R94.5 abnormal results OF LIVER FUNCTION STUDI ES; TECHNIQUE: The patient was given 5.2 mCi of Technetium 99m-Mebrofenin as a radiotracer and multiple scintigraphic images were obtained of the abdomen. Gallbladder function was also assessed after the a dministration of ensure drink and additional scintigraphic images were obtained of the abdomen. A reg ion of interest was drawn over the gallbladder and a timing activity curve was generated. The gallbla dder ejection fraction was calculated. FINDINGS: Normal uptake of radiotracer was identified within the liver with excretion into the hepatic and comm on biliary ducts within 8 minutes. There was normal progressive washout of the liver over the course of the study. Radiotracer uptake within the gallbladder at 10 minutes as well as small bowel activity was identified at 20 minutes. Maximum calculated gallbladder ejection fraction is: 80% at 30 minutes (Normal gallbladder ejection fraction is > 35%) IMPRESSION: 1. Normal hepatobiliary scan. 2. Normal ejection fraction.
== END | disposition home or self-care (01) ==
LOC: RADNMMAIN 12:20
PROVIDERS: ATTEND Surgery Plastic and Reconstructive Surgery
DX: H93.3X9 Disorders of unspecified acoustic nerve (principal); R94.5 Abnormal results of liver function studies
CPT/HCPCS: 78226; A9537

== ENCOUNTER → 2023-06-30 | Outpatient (CLI) | payer MEDICARE ==
--- NOTE | 2023-06-30 13:02 | US ---
EXAMINATION TYPE: US gallbladder DATE OF EXAM: 06/30/2023 COMPARISON: NM - 05/29/2023 US Renal - 07/20/2022 CLINICAL INDICATION: Male, 48 years old with history of R94.5 ABNORMAL RESULTS OF LIVER FUNCTION STUD IES; Patient denies any other signs or symptoms at this time TECHNIQUE: Multiple sonographic images of the right upper quadrant are obtained. FINDINGS: EXAM MEASUREMENTS: Liver Length: 15.4 cm Gallbladder Wall: 0.3 cm CBD: 0.3 cm Right Kidney: 13.1 x 4.2 x 5.9 cm CLERICAL SUPPORT SPECIALIST NOTES: Pancreas: Tail obscured by overlying bowel gas Liver: wnl Gallbladder: wnl Evidence for sonographic Darling's sign: No CBD: wnl Right Kidney: wnl IMPRESSION: 1. Normal abdomen ultrasound.
== END | disposition home or self-care (01) ==
LOC: RADUSWWP 09:00
PROVIDERS: ATTEND Surgery Plastic and Reconstructive Surgery
DX: H93.3X9 Disorders of unspecified acoustic nerve (principal); R94.5 Abnormal results of liver function studies; R79.89 Other specified abnormal findings of blood chemistry
CPT/HCPCS: 76705

== ENCOUNTER → 2023-07-16 | Outpatient (CLI) | payer MEDICARE ==
[2023-07-16 12:03] LABS: Partial Thromboplastin Time 23.1 sec (22.0-30.0); Prothrombin Time 10.5 sec (10.0-12.5)
[2023-07-16 16:20] LABS: HCT 36.6 % (39.6-50.0); HGB 12.6 g/dL (13.0-17.0); MCH 31.3 pg (27.0-32.0); MCHC 34.4 g/dL (32.0-37.0); MCV 90.8 FL (80.0-97.0); Mean Platelet Volume 10.2 FL (9.5-12.2); NRBC Per 100 WBC 0 X 10*3/uL (0.00-0.01); Platelet Count 154 X 10*3/uL (140-440); RBC 4.03 X 10*6/uL (4.40-5.60); RDW 12.3 % (11.5-14.5); WBC 4.74 X 10*3/uL (4.50-10.00)
[2023-07-16 17:02] LABS: % Iron Saturation 27.87 (15.00-50.00); ALT 64 U/L (10-49); AST 31 U/L (14-35); Albumin 4.4 g/dL (3.8-4.9); Alkaline Phosphatase 57 U/L (41-126); BUN/Creat Ratio 37.44 Ratio (12.00-20.00); Blood Urea Nitrogen 33.7 mg/dL (9.0-27.0); Calcium 9.5 mg/dL (8.7-10.3); Chloride 105 mmol/L (96-109); Chol/HDL Ratio 2.34 Ratio; Globulin 2.2 g/dL (1.6-3.3); Glucose 93 mg/dL (70-110); Iron 80 UG/DL (65-175); LDL Cholesterol,Calculated 57.1 mg/dL (0.0-131.0); Magnesium 1.8 mg/dL (1.5-2.4); Phosphorus 3.6 mg/dL (2.4-5.1); Sodium 142 mmol/L (135-145); Total Bilirubin 0.5 mg/dL (0.3-1.2); Total Iron Binding Capacity 287 UG/DL (228-460); Total Protein 6.6 g/dL (6.2-8.2); VLDL Calculation 14.44 mg/dL (5.00-40.00)
[2023-07-17 11:24] LABS: Zinc, Serum 71 ug/dL (60-130)
[2023-07-18 08:17] LABS: Vit B1(Thiamine) 54 ug/L (38-122)
[2023-07-18 10:04] LABS: Vitamin A 68 ug/dL (38-106)
== END | disposition home or self-care (01) ==
LOC: LABWHC1 10:59
PROVIDERS: ATTEND Surgery Plastic and Reconstructive Surgery
DX: E66.01 Morbid (severe) obesity due to excess calories (principal); E89.1 Postprocedural hypoinsulinemia; D50.8 Other iron deficiency anemias; K91.2 Postsurgical malabsorption, not elsewhere classified; E44.0 Moderate protein-calorie malnutrition; E44.1 Mild protein-calorie malnutrition; E45 Retarded development following protein-calorie malnutrition; E55.9 Vitamin D deficiency, unspecified; K74.1 Hepatic sclerosis; N19 Unspecified kidney failure; T56.894A Toxic effect of other metals, undetermined, initial encounter; K50.90 Crohn's disease, unspecified, without complications
CPT/HCPCS: 36415; 80053; 80061; 82306; 82525; 82607; 82728; 82746; 83036; 83540; 83550; 83735; 83970; 84100; 84134; 84255; 84425; 84443; 84590; 84630; 85027; 85610; 85730

== ENCOUNTER → 2023-07-16 | Outpatient (CLI) | payer MEDICARE ==
[2023-07-16 13:07] VITALS: BP 113/76; PULSE 58; TEMP 97.7; BMI 30.5
--- NOTE | 2023-07-16 13:39 | P.BASOAP ---
Subjective Progress Note Date: 07/16/23 Principal diagnosis: Weight is stable. He has lost over 200. 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 Follow up for October. Needs of pictures. Plan for follow up for September. 1 year out. Can see collar bones and xiphoid. US reviewed. Objective - Vital Signs Vital signs: Vital Signs Temp 97.7 F 07/16/23 12:46 Pulse 58 L 07/16/23 12:46 Resp BP 113/76 07/16/23 12:46 Pulse Ox FiO2 Intake & Output 07/15/23 07/16/23 07/16/23 18:59 06:59 18:59 Weight 93.894 kg Assessment/Plan Plan: Date: 07/16/23 Initial Weight: 166.831 kg Initial BMI: 54.3 Current Weight: 93.894 kg Current BMI: 30.5 Type of Surgery: Total Volume in Band: Previous Volume: Volume Removed: Volume Added: Band Size:
== END ==
LOC: BARWHC3 12:22
PROVIDERS: ATTEND Surgery Plastic and Reconstructive Surgery
DX: E66.01 Morbid (severe) obesity due to excess calories (principal); Z53.9 Procedure and treatment not carried out, unspecified reason
CPT/HCPCS: 97803; G0463; 99211

== ENCOUNTER → 2023-12-31 | Outpatient (CLI) | payer MEDICARE ==
[2023-12-31 13:52] VITALS: BP 134/79; PULSE 77; RESP 16; TEMP 97.9; BMI 29.0
--- NOTE | 2023-12-31 14:20 | P.BASOAP ---
Subjective Progress Note Date: 12/31/23 Patient weight is stable. He is here for panniculecotmy check up. Seen alarm mechanic. Protein intake 75 grams daily. 30 grams. He has pets at home. 3 cats/3 dogs. He wants skin removal. Grade 3 skin. Picture of skin. Still has nystain. Objective - Vital Signs Vital signs: Vital Signs Temp 97.9 F 12/31/23 13:46 Pulse 77 12/31/23 13:46 Resp 16 12/31/23 13:46 BP 134/79 12/31/23 13:46 Pulse Ox FiO2 Intake & Output 12/30/23 12/31/23 12/31/23 18:59 06:59 18:59 Weight 89.358 kg Assessment/Plan Plan: Date: 12/31/23 Initial Weight: 166.831 kg Initial BMI: 54.3 Current Weight: 89.358 kg Current BMI: 29.0 Type of Surgery: Total Volume in Band: Previous Volume: Volume Removed: Volume Added: Band Size:
== END ==
LOC: BARWHC3 12:55
PROVIDERS: ATTEND Surgery Plastic and Reconstructive Surgery
DX: E66.01 Morbid (severe) obesity due to excess calories (principal); Z68.29 Body mass index [BMI] 29.0-29.9, adult
CPT/HCPCS: 99211

== ENCOUNTER → 2024-02-04 | Outpatient (CLI) | payer MEDICARE ==
[2024-02-04 19:44] LABS: Basophils # (A) 0.04 X 10*3/uL (0.00-0.10); Basophils % (A) 0.8 %; Eosinophils # (A) 0.08 X 10*3/uL (0.04-0.35); Eosinophils % (A) 1.6 %; HCT 36.8 % (39.6-50.0); HGB 12.8 g/dL (13.0-17.0); Lymphocytes # (A) 1.34 X 10*3/uL (0.90-5.00); MCH 32.5 pg (27.0-32.0); MCHC 34.8 g/dL (32.0-37.0); MCV 93.4 FL (80.0-97.0); Mean Platelet Volume 9.9 FL (9.5-12.2); Monocytes # (A) 0.34 X 10*3/uL (0.20-1.00); Monocytes % (A) 6.9 %; NRBC Per 100 WBC 0 X 10*3/uL (0.00-0.01); Neutrophils # (A) 3.14 X 10*3/uL (1.80-7.70); Neutrophils % (A) 63.3 %; Platelet Count 123 X 10*3/uL (140-440); RBC 3.94 X 10*6/uL (4.40-5.60); RBC Morphology Normal (Normal); RDW 12.3 % (11.5-14.5); WBC 4.96 X 10*3/uL (4.50-10.00)
[2024-02-04 20:08] LABS: ALT 62 U/L (10-49); AST 38 U/L (14-35); Albumin 4.3 g/dL (3.8-4.9); Albumin/Globulin Ratio 1.95 Ratio (1.60-3.17); Alkaline Phosphatase 52 U/L (41-126); Blood Urea Nitrogen 27.7 mg/dL (9.0-27.0); Calcium 9.4 mg/dL (8.7-10.3); Carbon Dioxide 25.9 mmol/L (21.6-31.8); Chloride 101 mmol/L (96-109); Globulin 2.2 g/dL (1.6-3.3); Glucose 98 mg/dL (70-110); Potassium 4.2 mmol/L (3.5-5.5); Sodium 139 mmol/L (135-145); Total Bilirubin 0.6 mg/dL (0.3-1.2); Total Protein 6.5 g/dL (6.2-8.2)
== END | disposition home or self-care (01) ==
LOC: LABPAT 14:10
PROVIDERS: ATTEND Surgery Plastic and Reconstructive Surgery
DX: Z01.818 Encounter for other preprocedural examination (principal); I10 Essential (primary) hypertension
CPT/HCPCS: 80053; 85025; 86850; 86900; 86901; 93005

== ENCOUNTER → 2024-02-04 | Outpatient (CLI) | payer MEDICARE ==
[2024-02-04 13:21] VITALS: BP 146/80; PULSE 73; RESP 16; TEMP 97.6; BMI 29.0
--- NOTE | 2024-02-04 13:51 | P.BASOAP ---
Subjective Progress Note Date: 02/04/24 He is eating 120 grams to 140 grams of protein. So has history of kidney disease. Get labs. Pets at home. Stay in the camper. Redo EKG as new findings. Anticipated loss of 5 to 10 pounds. Get pain block. Wants pictures of skin removal. Sponge bathe needed. He urinating. Objective - Vital Signs Vital signs: Vital Signs Temp 97.6 F 02/04/24 13:18 Pulse 73 02/04/24 13:18 Resp 16 02/04/24 13:18 BP 146/80 02/04/24 13:18 Pulse Ox FiO2 Intake & Output 02/03/24 02/04/24 02/04/24 18:59 06:59 18:59 Weight 89.358 kg Assessment/Plan Plan: Date: 02/04/24 Initial Weight: 166.831 kg Initial BMI: 54.3 Current Weight: 89.358 kg Current BMI: 29.0 Type of Surgery: Total Volume in Band: Previous Volume: Volume Removed: Volume Added: Band Size:
== END ==
LOC: BARWHC3 12:50
PROVIDERS: ATTEND Surgery Plastic and Reconstructive Surgery
DX: E66.01 Morbid (severe) obesity due to excess calories (principal); Z68.29 Body mass index [BMI] 29.0-29.9, adult; Z87.448 Personal history of other diseases of urinary system
CPT/HCPCS: 99211

== ENCOUNTER 2024-02-09 10:27 | Day surgery (SDC) | payer MEDICARE ==
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
[~2024-02-09 10:27] MED LIST changes: -CHLORHEXIDINE GLUCONATE 15 ML CUP MUCOUS MEM PRN; -DEXAMETHASONE SOD PHOSPHATE 4 MG/ML 1 ML VIAL IV ONE; -ENOXAPARIN 40 MG/0.4 ML SYRINGE SQ PRN; +HYDROmorphone 0.5 MG/0.5 ML SYRINGE IVP PRN; -LIDOCAINE 1% (10MG/ML) FOR IV START INTRADERMA PRN; -MIDAZOLAM 2 MG/2 ML VIAL IV PRN; -ONDANSETRON 4 MG/2 ML VIAL IVP ONE; +ONDANSETRON 4 MG/2 ML VIAL IVP PRN; -PANTOPRAZOLE 40 MG/10 ML VIAL IVP PRN; -ceFAZolin 3 GM in SODIUM CHLORIDE 0.9% 100 ML IVPB PRN
[2024-02-09] MEDS: IV FLUID CONTINUATION 1,000 ML IV ONE (10:57)
[2024-02-09] MEDS: ACETAMINOPHEN TAB 500 MG TAB PO PRN (11:33)
[2024-02-09] MEDS: ONDANSETRON 4 MG/2 ML VIAL IVP ONE (11:34)
[2024-02-09] MEDS: DEXAMETHASONE SOD PHOSPHATE 4 MG/ML 1 ML VIAL IV ONE (11:34)
[2024-02-09] MEDS: LACTATED RINGERS 1,000 ML IV SCH (11:35)
[2024-02-09 11:46] LABS: ALT 61 U/L (4-49); AST 43 U/L (17-59); African American GFR (CKD) >90 (>60 ml/min/1.73 sqM); Albumin 4.1 g/dL (3.5-5.0); Alkaline Phosphatase 50 U/L (38-126); Anion Gap 6 mmol/L; Blood Urea Nitrogen 25 mg/dL (9-20); Calcium 9.1 mg/dL (8.4-10.2); Carbon Dioxide 30 mmol/L (22-30); Chloride 105 mmol/L (98-107); Glucose 103 mg/dL (74-99); Non-African American GFR(CKD) >90 (>60 ml/min/1.73 sqM); Potassium 3.9 mmol/L (3.5-5.1); Sodium 141 mmol/L (137-145); Total Bilirubin 0.8 mg/dL (0.2-1.3); Total Protein 6.6 g/dL (6.3-8.2)
[2024-02-09 11:55] LABS: Basophils % (A) 0 %; Eosinophils # (A) 0.1 k/uL (0-0.7); Eosinophils % (A) 2 %; HCT 35.2 % (39.0-53.0); HGB 12.4 gm/dL (13.0-17.5); Lymphocytes # (A) 1.2 k/uL (1.0-4.8); Lymphocytes % (A) 28 %; MCH 32.2 pg (25.0-35.0); MCHC 35.3 g/dL (31.0-37.0); MCV 91.2 fL (80.0-100.0); Mean Platelet Volume 7.1; Monocytes # (A) 0.2 k/uL (0-1.0); Monocytes % (A) 4 %; Neutrophils # (A) 2.8 k/uL (1.3-7.7); Neutrophils % (A) 64 %; Platelet Count 158 k/uL (150-450); RBC 3.85 m/uL (4.30-5.90); RDW 12.1 % (11.5-15.5); WBC 4.3 k/uL (3.8-10.6)
[2024-02-09] MEDS: MIDAZOLAM 2 MG/2 ML VIAL IVP ONE (11:56)
[2024-02-09] MEDS: HEPARIN SODIUM,PORCINE 5,000 UNIT/ML 1 ML VIAL SQ PRN (12:14)
[2024-02-09] MEDS: LACTATED RINGERS 1,000 ML IV ONE ×2 (14:27→17:40)
[2024-02-09] MEDS ORDERED: TRIMETHOBENZAMIDE 100 MG/ML 2 ML VIAL IM PRN ×2 (18:39)
[2024-02-09] MEDS ORDERED: ONDANSETRON 4 MG/2 ML VIAL IVP PRN (18:39)
[2024-02-09] MEDS ORDERED: NALOXONE 0.4 MG/ML 1 ML VIAL IV PRN (18:48)
--- NOTE | 2024-02-09 18:57 | P.OP ---
Date of Procedure: 02/09/24 Description of Procedure: SURGEON: LUIS ALBERTO MANZANARES MD SENIOR TELECOMMUNICATIONS SPECIALIST: TOAN PREOPERATIVE DIAGNOSES: 1. Panniculitis 2. Adiposus panniculus with central adiposity 3. Status post sleeve gastrectomy, massive weight loss over 300 pounds 4. Body mass index to 72.9 to 29.1 5. Osteoarthritis of the knees. 6. Hypertensive heart disease. 7. Hyperlipidemia 8. Hypothyroidism 9. 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 Iron deficiency anemia POSTOPERATIVE DIAGNOSES: 1. Panniculitis 2. Adiposus panniculus with central adiposity 3. Status post sleeve gastrectomy, massive weight loss over 300 pounds 4. Body mass index to 72.9 to 29.1 5. Osteoarthritis of the knees. 6. Hypertensive heart disease. 7. Hyperlipidemia 8. Hypothyroidism 9. 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 Iron deficiency anemia 11. Abdominal incisional ventral hernia, 30 x 14 cm, unrelated to prior bariatric surgery. OPERATION: 1. Panniculectomy. 2. Primary repair of ventral hernia 30 x 14 cm cm without mesh. 3. Abdominal wall reconstruction with bilateral abdominal myocutaneous flap advancement. ANESTHESIA: General, regional block ESTIMATED BLOOD LOSS: 750 mL SPECIMENS REMOVED: Pannus 7.26 pounds. COMPLICATIONS: None. CONDITION: Stable. DRAINS: Two #19 Rashaad drains below abdominal flap extending through the pubis. OPERATIVE FINDINGS: 1. Pannus weighing 7.26 pounds, excised. 2. Abdominal ventral hernia of 30 x 14 cm along the midline repaired primarily using fascial imbrication. INDICATIONS: The patient is a 49-year-old male with a history of massive weight loss over 300 pounds over 3 years. Despite medical therapy with prescription powders such as Nystatin over 6 years, he has developed severe medical refractory panniculitis including chronic lower back pain. Body mass index has been reduced from approximately 72.9 down to 29.1. Given clinical symptoms, including massive weight loss, he elected for surgical intervention with a panniculectomy. Benefits and risks of the procedure including bleeding, infection, risk of flap failure were described at length. Informed consent was obtained. DESCRIPTION: In the preanesthesia care unit the patient was marked with an indelible marker. Additionally, regional block was placed per anesthesia. He had also been given heparin subcutaneously. The patient was brought into the operating room and laid in supine position. After general induction, a Roth catheter was placed. The abdomen was then prepped and draped in standard sterile fashion using ChloraPrep. The skin was prepped as far laterally to the back, inferiorly to the upper thighs and superiorly to above the bilateral breasts. A timeout protocol was confirmed with the surgical team regarding patient's name, procedure to be performed, including preoperative medications. He had received Ancef 2 grams IV antibiotics. Once the time-out protocol was confirmed with the surgical team, the patient was re-marked with indelible marker whereby the midline of the xiphoid to the mons pubis was marked. The anterior/superior iliac spine along the bilateral hips was also marked. Approximately 7 cm above the pubis a transverse incision was made for the inferior portion of the flap. Using a #10 blade, the incision was taken from the midline laterally to above the anterior/superior iliac spine, initially on the left side of the patient and then on the right side of the patient. Electro-Bovie cautery was used to control for hemostasis. The dissection was taken down to the level of the fascia. Landmarks used were the xiphoid process as well as the bilateral costal margins for the superior margin. Care was taken to avoid any creation of dog ears during the dissection. Once hemostasis was checked, a large ventral hernia fascial defect of 14 x 30 cm was identified with prior Prolene sutures and Ethibond sutures identified and removed from previous hernia repair. During this dissection, the umbilicus was truncated at its fascial insertion. Bilateral myocutaneous flap advancement was performed to close the large defect of 14 x 30 cm using the rectus muscle. After the flaps were raised, the midline was re-marked again from the xiphoid to the pubis commissure. Fascial imbrication was proposed for primary repair and to reinforce the bilateral myocutaneous flap advancement. Starting from the xiphoid process, the rectus muscle was overlapped in the bilateral myocutaneous flap advancement using #2 Ethibond. The ventral hernia defect was completely repaired and closed. Hemostasis was once again checked with electro-Bovie cautery and all defects were addressed. Attention was now brought to closure of the flap. Using stainless steel skin jayla, the midline was once again marked of the upper flap as well as the pubic commissure. The patient was placed in a flexed position of approximately 20 degrees at the hips. The pannus was extended inferiorly to the feet. The upper flap was created once the excess skin was excised. Again care was taken to avoid any dog ears along the lateral aspect of the incisions. Once excised, the pannus weighed approximately 7.26 pounds. The upper and lower flaps were reapproximated at the midline and then laterally to the skin with skin jayla. Once reapproximated, the skin was closed in layers using 0 Vicryl for the superficial fascial system followed by running 3-0 Monocryl for the deep dermis in a running subcuticular fashion. Prior to skin closure, two round #19 round Henri-Bowman drains were placed underneath the flap and brought out just inferior to the incision along the pubis. Drain stitch using 2-0 nylon was placed. Once the incision was closed, bulb suction was attached. Hemostasis was checked. Dermabond tape with glue including Optifoam dressing was placed. At the end of the procedure, the needle, sponge and instrument count was verified correct. The patient was then transferred to a hospital bed in a beach chair position. An abdominal binder was placed and marked. The patient was taken to the postanesthesia care unit in stable condition, awake and extubated.
[2024-02-09] MEDS: TAMSULOSIN 0.4 MG CAP.ER.24H PO STA (19:02)
[2024-02-09] MEDS ORDERED: HYDROmorphone PCA 10 MG/50 ML BAG IV PRN (19:30)
[2024-02-09] MEDS: HEPARIN SODIUM,PORCINE 5,000 UNIT/ML 1 ML VIAL SQ SCH (20:17)
[2024-02-09] MEDS: CYCLOBENZAPRINE 10 MG TAB PO SCH (20:17)
[2024-02-09] MEDS: HYDROmorphone 2 MG/ML 1 ML SYRINGE IVP PRN (20:18)
[2024-02-09] MEDS: D5-0.45% NACL WITH KCL 20MEQ/L 1,000 ML IV SCH (21:56)
[2024-02-09] MEDS: ACETAMINOPHEN TAB 500 MG TAB PO SCH (23:56)
[2024-02-10] MEDS: LEVOTHYROXINE 75 MCG TAB PO SCH (05:24)
[2024-02-10] MEDS: LEVOTHYROXINE 100 MCG TAB PO SCH (05:25)
--- NOTE | 2024-02-10 08:49 | P.ANPRN ---
Procedure Note - Anesthesia - Nerve Block Performed Bilateral Erector Spinae Single Time Out Performed: Yes Date of Procedure: 02/09/24 Procedure Start Time: 11:55 Procedure Stop Time: 12:02 Location of Patient: PreOp Indication: Acute Post-Operative Pain, Requested by Surgeon Sedation Type: Sedate with meaningful contact maintained Preparation: Sterile Prep Position: Prone Needle Types: Pajunk Needle Gauge: 21 Ultrasound used to visualize needle placement: Yes Ultrasound used to observe medication spread: Yes Blood Aspirated: No Pain Paresthesia on Injection Noted: No Resistance on Injection: Normal Image Stored and Saved: Yes Events: Uneventful and Well Tolerated (Ropivacaine 0.5% 15 cc plus normal saline 10 cc plus dexamethasone 4 mg given bilaterally at L1)
[2024-02-10 12:19] VITALS: BP 113/63; PULSE 53; RESP 16; TEMP 98
--- NOTE | 2024-02-10 12:37 | P.DS ---
Providers Expected date of discharge: 02/10/24 Attending physician: Adela Blanc Consults: 02/09/24 09:32 Consult Physician Routine Consulting Provider: [facility] Consult Reason/Comments: Regional block Do you want consulting provider notified?: Yes Primary care physician: Stated None Hospital Course: Discharge diagnosis 1. Panniculitis 2. Adiposus panniculus with central adiposity 3. Status post sleeve gastrectomy, massive weight loss over 300 pounds 4. Body mass index to 72.9 to 29.1 5. Osteoarthritis of the knees. 6. Hypertensive heart disease. 7. Hyperlipidemia 8. Hypothyroidism 9. 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 Iron deficiency anemia 11. Abdominal incisional ventral hernia, 30 x 14 cm, unrelated to prior bariatric surgery. Hospital course The patient is a 49-year-old male with a history of massive weight loss over 300 pounds over 3 years. Despite medical therapy with prescription powders such as Nystatin over 6 years, he has developed severe medical refractory panniculitis including chronic lower back pain. Patient is status post panniculectomy, primary repair of ventral hernia without mesh and abdominal wall reconstruction with bilateral abdominal myocutaneous flap advancement. Patient tolerated surgery well. Pain is controlled. He has been up and ambulating. He is having flatus. Denies any difficulty urinating. He is afebrile. He is stable for discharge. Physician [facility] note has been reviewed by physician. Signing provider agrees with the documented findings, assessment, and plan of care. Patient Condition at Discharge: Stable Plan - Discharge Summary Discharge Rx Participant: No New Discharge Prescriptions: New Acetaminophen Tab [Tylenol] 1,000 mg PO Q6HR PRN #30 tablet PRN Reason: Pain Docusate [Colace] 100 mg PO BID #30 capsule Continue Levothyroxine Sodium [Synthroid] 175 mcg PO QAM Discontinued Atorvastatin [Lipitor] 40 mg PO DAILY Calcium Citrate 500 mg PO DAILY Ferrous Sulfate [Feosol] 325 mg PO DAILY Multivitamins, Thera [Multivitamin (formulary)] 2 tab PO DAILY Discharge Medication List Levothyroxine Sodium [Synthroid] 175 mcg PO QAM 11/08/19 [History] Acetaminophen Tab [Tylenol] 1,000 mg PO Q6HR PRN #30 tablet 02/10/24 [Rx] Docusate [Colace] 100 mg PO BID #30 capsule 02/10/24 [Rx] [facility] [facility] [place] [facility] [place] Activity/Diet/Wound Care/Special Instructions: No lifting over 4 pounds in 4 weeks. No bathtub soaks. No shower. No stretching or twisting. Sleep in a recliner. DO NOT REMOVE DRESSINGS. DO NOT REMOVE BINDER. Keep record of AR outputs daily. Do not take vitamins, supplements or cholesterol medication due to increased bleeding risk Discharge Disposition: HOME SELF-CARE
== END 2024-02-10 16:41 | disposition home or self-care (01) ==
LOC: OR 10:27 → 4SSUR 18:03 → OR 02-10 16:41
PROVIDERS: ATTEND Surgery Plastic and Reconstructive Surgery
DX: M79.3 Panniculitis, unspecified (principal); I12.9 Hypertensive chronic kidney disease with stage 1 through stage 4 chronic kidney disease, or unspecified chronic kidney disease; J44.9 Chronic obstructive pulmonary disease, unspecified; G89.18 Other acute postprocedural pain; E78.5 Hyperlipidemia, unspecified; E66.9 Obesity, unspecified; E03.9 Hypothyroidism, unspecified; D50.9 Iron deficiency anemia, unspecified; K76.0 Fatty (change of) liver, not elsewhere classified; M17.0 Bilateral primary osteoarthritis of knee; N18.9 Chronic kidney disease, unspecified; Z68.45 Body mass index [BMI] 70 or greater, adult; Z79.890 Hormone replacement therapy; Z79.899 Other long term (current) drug therapy; Z86.718 Personal history of other venous thrombosis and embolism; Z87.891 Personal history of nicotine dependence; Z98.84 Bariatric surgery status; Z98.890 Other specified postprocedural states
CPT/HCPCS: 64999; 80053; 85025; 49591; 17999; J2250; J1171 ×2; J1644 ×2; J1100; J0690 ×2; J2405

== ENCOUNTER → 2024-02-13 | Outpatient (CLI) | payer MEDICARE ==
[2024-02-13 10:27] VITALS: BP 121/79; PULSE 66; RESP 16; TEMP 98.7; BMI 28.5
--- NOTE | 2024-02-19 23:18 | P.BASOAP ---
Subjective Progress Note Date: 02/13/24 Patient reports he was told to discontinue all his dressings from panniculectomy which was contraindicated. All dressings redressed with Optifoam antibiotic dressing. Drain stripped. No cellulitis or infection. Continue JPs are serosanguineous. Close outpatient follow-up weekly with next follow-up We dnesday, in 5 to 6 days. Overall, doing well. Limits her protein intake 80 to 90 g described due to risk of acute kidney injury with pre-existing history of chronic kidney disease. Objective - Vital Signs Vital signs: Vital Signs Temp 98.7 F 02/13/24 10:09 Pulse 66 02/13/24 10:09 Resp 16 02/13/24 10:09 BP 121/79 02/13/24 10:09 Pulse Ox FiO2 Intake & Output 02/13/24 02/13/24 02/14/24 06:59 18:59 06:59 Weight 87.634 kg Assessment/Plan Plan: Date: 02/13/24 Initial Weight: 166.831 kg Initial BMI: 54.3 Current Weight: 87.634 kg Current BMI: 28.5 Type of Surgery: Total Volume in Band: Previous Volume: Volume Removed: Volume Added: Band Size:
== END ==
LOC: BARWHC3 09:14
PROVIDERS: ATTEND Surgery Plastic and Reconstructive Surgery
DX: E66.01 Morbid (severe) obesity due to excess calories (principal); Z68.28 Body mass index [BMI] 28.0-28.9, adult
CPT/HCPCS: 99212

== ENCOUNTER → 2024-02-18 | Outpatient (CLI) | payer MEDICARE ==
[2024-02-18 13:20] VITALS: BP 109/74; PULSE 76; RESP 16; TEMP 98.2; BMI 28.7
--- NOTE | 2024-02-18 13:59 | P.BASOAP ---
Subjective Progress Note Date: 02/18/24 Lost 300 pounds from 493 to 193 pounds. DOing very well. Drains becoming serous. Protein 80 to 100 grams. Pain tolerable. No infection. AR dressings change. Keep Optifoam along major incision. FU 1 week Objective - Vital Signs Vital signs: Vital Signs Temp 98.2 F 02/18/24 13:07 Pulse 76 02/18/24 13:07 Resp 16 02/18/24 13:07 BP 109/74 02/18/24 13:07 Pulse Ox FiO2 Intake & Output 02/17/24 02/18/24 02/18/24 18:59 06:59 18:59 Weight 88.139 kg Assessment/Plan Plan: Date: 02/18/24 Initial Weight: 166.831 kg Initial BMI: 54.3 Current Weight: 88.139 kg Current BMI: 28.7 Type of Surgery: Total Volume in Band: Previous Volume: Volume Removed: Volume Added: Band Size:
== END ==
LOC: BARWHC3 12:18
PROVIDERS: ATTEND Surgery Plastic and Reconstructive Surgery
DX: E66.01 Morbid (severe) obesity due to excess calories (principal); Z68.28 Body mass index [BMI] 28.0-28.9, adult
CPT/HCPCS: 99212

== ENCOUNTER → 2024-02-25 | Outpatient (CLI) | payer MEDICARE ==
[2024-02-25 14:23] VITALS: BP 118/73; PULSE 65; RESP 16; TEMP 97.6
--- NOTE | 2024-02-25 15:28 | P.BASOAP ---
Subjective Progress Note Date: 02/25/24 Gained 8 pounds in 2 weeks. Drains 25 mL daily. He is having bowel movements. He has water retention. He is drinking 90 oz. Optifoam and tape removed. FU next week. Objective - Vital Signs Vital signs: Vital Signs Temp 97.6 F 02/25/24 14:11 Pulse 65 02/25/24 14:11 Resp 16 02/25/24 14:11 BP 118/73 02/25/24 14:11 Pulse Ox FiO2 Intake & Output 02/24/24 02/25/24 02/25/24 18:59 06:59 18:59 Weight 91.172 kg Assessment/Plan Plan: Date: 02/25/24 Initial Weight: 166.831 kg Initial BMI: Current Weight: 91.172 kg Current BMI: Type of Surgery: Total Volume in Band: Previous Volume: Volume Removed: Volume Added: Band Size:
== END ==
LOC: BARWHC3 13:55
PROVIDERS: ATTEND Surgery Plastic and Reconstructive Surgery
DX: E66.01 Morbid (severe) obesity due to excess calories (principal); Z68.29 Body mass index [BMI] 29.0-29.9, adult
CPT/HCPCS: 99212

== ENCOUNTER → 2024-03-10 | Outpatient (CLI) | payer MEDICARE ==
[2024-03-10 13:36] VITALS: BP 136/77; PULSE 79; RESP 16; TEMP 98.2; BMI 27.3
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
== END ==
LOC: BARWHC3 13:20
PROVIDERS: ATTEND Surgery Plastic and Reconstructive Surgery
DX: E66.01 Morbid (severe) obesity due to excess calories (principal); Z68.27 Body mass index [BMI] 27.0-27.9, adult; Z87.891 Personal history of nicotine dependence
CPT/HCPCS: 99212

== ENCOUNTER → 2024-06-02 | Outpatient (CLI) | payer MEDICARE ==
[2024-06-02 13:40] VITALS: BP 141/88; PULSE 80; RESP 16; TEMP 98.7; BMI 31.4
--- NOTE | 2024-06-02 14:30 | P.BASOAP ---
Subjective Progress Note Date: 06/02/24 HE comes in with weight gain of 30 pounds in 2 months. Medication with steroids for walking pneumonia. Protein over 100 grams of protein. Pneumonia is now gone. Counteract steroids. May benefit from intermittent fasting. He has much stress. Not sleeping. Too much stress. Increase fluids in 100 to 120 oz. Stop drinking fluids 7 pm. 4 weeks. Objective - Vital Signs Vital signs: Vital Signs Temp 98.7 F 06/02/24 13:31 Pulse 80 06/02/24 13:31 Resp 16 06/02/24 13:31 BP 141/88 06/02/24 13:31 Pulse Ox FiO2 Intake & Output 06/01/24 06/02/24 06/02/24 18:59 06:59 18:59 Weight 96.615 kg Assessment/Plan Plan: Date: 06/02/24 Initial Weight: 166.831 kg Initial BMI: 54.3 Current Weight: 96.615 kg Current BMI: 31.4 Type of Surgery: Total Volume in Band: Previous Volume: Volume Removed: Volume Added: Band Size:
== END ==
LOC: BARWHC3 13:28
PROVIDERS: ATTEND Surgery Plastic and Reconstructive Surgery
DX: E66.01 Morbid (severe) obesity due to excess calories (principal); Z68.31 Body mass index [BMI] 31.0-31.9, adult
CPT/HCPCS: 99211